=== PATIENT | male | born 1970 | race Caucasian/White ===

== ENCOUNTER 2016-08-30 15:49 | Emergency (ER) | payer BC ==
[~2016-08-30] VITALS: Ht 182.9 cm; Wt 119.7 kg
[~2016-08-30 15:49] MED LIST: PRLSR20 PO; THR25 PO
[2016-08-30 15:53] VITALS: TEMP 36.8; Ht 182.9 cm; Wt 119.7 kg
[2016-08-30] MEDS ORDERED: SODIUM CHLORIDE 0.9% 1000ML 1,000 ML IV STA (17:36)
[2016-08-30] MEDS ORDERED: ONDANSETRON INJ 2 MG/ML 2 ML VIAL IV STA (17:36)
[2016-08-30 17:58] LABS: BASO % 0.1 %; BASO ABS # 0.01 K/uL (0-0.2); COMPLETE YES; EOS % 0.1 %; HEMATOCRIT 47.1 % (42-52); IG% 0.2 %; LYMPH % 6.6 %; MEAN CELL VOLUME 90.2 fL (80-100); MEAN CORPUSCULAR HEMOGLOBIN 31.8 pg (25-34); MEAN CORPUSCULAR HGB CONC 35.2 g/dl (32-36); MEAN PLATELET VOLUME 10.2 fL (7.4-10.4); MONO % 4.8 %; NEUT % 88.2 %; PLATELET COUNT 300 K/uL (130-400); RED BLOOD COUNT 5.22 M/uL (4.7-6.1); WHITE BLOOD COUNT 12.18 K/uL (4.8-10.8)
[2016-08-30] MEDS ORDERED: MoRPHine SULFATE 10 MG/ML CARP/VIAL IV STA (18:03)
[2016-08-30 18:10] LABS: URINE APPEARANCE CLOUDY (CLEAR); URINE BILIRUBIN NEG (NEG); URINE COLOR DK YELLOW; URINE EPITHELIAL CELL AUTO >30 /lpf (0-5); URINE NITRITE NEG (NEG); URINE SPECIFIC GRAVITY 1.022 (1.000-1.030); UROBILINOGEN NEG (NEG); ZZUR CULT IF INDIC CLEAN CATCH NO
[2016-08-30 18:11] LABS: BUN/CREATININE RATIO 11.8 (10-20); CALCIUM 9.2 mg/dl (8.5-10.1); CREATININE 1.1 mg/dl (0.60-1.40); POTASSIUM 4.2 mmol/L (3.5-5.1)
[2016-08-30 18:13] LABS: ALB/GLOB RATIO 1.3 (0.9-2)
[2016-08-30 18:13] LABS: MANUAL MICROSCOPIC REQUIRED? NO; REVIEW REQ? NO
--- NOTE | 2016-08-30 18:46 | DIAGNOSTIC IMAGING REPORT ---
CT SCAN OF THE ABDOMEN AND PELVIS WITHOUT CONTRAST CLINICAL HISTORY: Right flank pain COMPARISON STUDY: 214 TECHNIQUE: CT scan of the abdomen and pelvis was performed from the lung bases to the proximal femurs. Images are reviewed in the axial, sagittal, and coronal planes. IV contrast was not administered for this examination. CT DOSE: 2092.85 mGy.cm FINDINGS: Lower chest: There are mild basilar atelectatic changes. Liver: The unenhanced liver is normal in size, contour, and attenuation. There is no intrahepatic biliary ductal dilatation. Gallbladder: Unremarkable. Spleen: Normal in size and attenuation. Pancreas: Unremarkable. Adrenal glands: Unremarkable. Kidneys: There is mild right-sided hydronephrosis. There is mild right-sided hydroureter. No right renal calculi are visualized. 2 nonobstructing left renal calculi are visualized measuring 2, and 2.5 mm respectively. There is a 1 mm right ureteral calculus at the L 4-5 level. There is an adjacent 22 mm cystic structure versus unopacified bowel loop. Bowel: There are no transition zones indicate bowel obstruction. There is colonic diverticulosis. There are no acute peridiverticular inflammatory changes. The appendix appears normal. Peritoneum: There is no intraperitoneal free air or abdominal ascites. Vasculature: The abdominal aorta is normal in course and caliber. Adenopathy: There are multiple surgical clips within the retroperitoneum, likely secondary to a prior lymph node dissection. No pathologically enlarged lymph nodes are visualized. Pelvic viscera: The bladder, and pelvic viscera are unremarkable. Skeletal structures: No destructive osseous lesions are seen. IMPRESSION: 1. Left-sided nephrolithiasis 2. 1 mm right ureteral calculus at the L4-5 level with secondary mild right-sided hydronephrosis 3. Adjacent to the right ureter at the level of the calculus, there is a 22 mm cystic structure versus unopacified bowel loop 4. Normal appendix 5. Diverticulosis. No evidence of acute peridiverticular inflammatory change 6. No evidence of bowel obstruction. No evidence of free air Electronically signed by: Claudio Chin M.D. 08/30/2016 6:45 PM Dictated Date/Time: 08/30/2016 6:37 PM
[2016-08-30] MEDS ORDERED: KETOROLAC TROMETHAMINE 30 MG/ML VIAL IV STA (18:54)
[2016-08-30] MEDS ORDERED: ONDA4TAB10 SL (19:32)
[2016-08-30] MEDS ORDERED: TAMS0.4C38 PO (19:32)
[2016-08-30] MEDS ORDERED: OXYC-57 PO (19:32)
--- NOTE | 2016-08-30 19:33 | EMERGENCY ROOM VISIT NOTE ---
History First contact with patient: 17:24 Chief Complaint: FLANK PAIN Stated Complaint: PAIN IN SIDE NEAR STOMACH History of Present Illness The patient is a 46 year old male who presents to the Emergency Room with complaints of right-sided flank/abdominal pain which began abruptly approximately 3 hours ago. The patient reports a sudden onset of pain radiating from his right flank into his right lower abdomen. He states that the pain was severe for 1-2 hours, but has since become a dull pain which he now rates a 3/10. He complains of nausea and has had one episode of vomiting. He does report that he has had kidney stones before but is unsure if this feels similar. He denies any urinary symptoms, chest pain, shortness of breath or changes in bowel movements. He denies fevers/chills. He has had a hernia repair but denies any other abdominal surgery. Review of Systems A complete 10-point Review of Systems was discussed with the patient, with pertinent positives and negatives listed in the History of Present Illness. All remaining Review of Systems questions can be considered negative unless otherwise specified. Past Medical/Surgical History Medical Problems: (1) Gastroenteritis (2) History of testicular cancer (3) Vomiting Family History Patient reports no known family medical history. Social History Smoking Status: Never Smoker Alcohol Use: none Drug Use: none Marital Status: Housing Status: lives with family Current/Historical Medications Scheduled Omeprazole (Prilosec), 20 MG PO DAILY Ondasetron Odt (Zofran Odt), 4 MG SL Q6H Tamsulosin Hcl (Flomax), 0.4 MG PO DAILY Scheduled PRN Chlorpromazine Hcl (Thorazine), 50 MG PO TID PRN for hiccups Oxycodone/Acetaminophen 5MG/325MG (Percocet 5MG/325MG), 1-2 TABS PO Q4H PRN for Pain Allergies Coded Allergies: No Known Allergies (Unverified , 08/30/16) Physical Exam Vital Signs Date Time Temp Pulse Resp B/P Pulse Ox O2 Delivery O2 Flow Rate FiO2 08/30/16 19:34 79 16 146/95 98 Room Air 08/30/16 18:31 70 16 148/97 98 08/30/16 17:50 64 18 142/96 100 08/30/16 15:53 36.8 71 18 159/109 100 Room Air Pain Rating (0-10): 6.0 Physical Exam VITALS: Vitals are noted on the nurse's note and reviewed by myself. Vital signs stable. GENERAL: This is a 46-year-old male, in no acute distress, nondiaphoretic, well- developed well-nourished. SKIN: Capillary reflex less than 2 seconds. HEART: Regular rate and rhythm without murmurs gallops or rubs. LUNGS: Clear to auscultation bilaterally without wheezes, rales or rhonchi. ABDOMEN: Positive bowel sounds x 4. Mild tenderness over the right lower abdomen. No guarding or rebound tenderness. MUSCULOSKELETAL: No CVA tenderness. NEURO: Patient was alert and oriented to person place and time. Medical Decision & Procedures ER Provider Diagnostic Interpretation: CT SCAN OF THE ABDOMEN AND PELVIS WITHOUT CONTRAST IMPRESSION: 1. Left-sided nephrolithiasis 2. 1 mm right ureteral calculus at the L4-5 level with secondary mild right-sided hydronephrosis 3. Adjacent to the right ureter at the level of the calculus, there is a 22 mm cystic structure versus unopacified bowel loop 4. Normal appendix 5. Diverticulosis. No evidence of acute peridiverticular inflammatory change 6. No evidence of bowel obstruction. No evidence of free air Laboratory Results 08/30/16 17:45 Red Blood Count 5.22, Mean Corpuscular Volume 90.2, Mean Corpuscular Hemoglobin 31.8, Mean Corpuscular Hemoglobin Concent 35.2, Mean Platelet Volume 10.2, Neutrophils (%) (Auto) 88.2, Lymphocytes (%) (Auto) 6.6, Monocytes (%) (Auto) 4.8, Eosinophils (%) (Auto) 0.1, Basophils (%) (Auto) 0.1, Neutrophils # (Auto) 10.75, Lymphocytes # (Auto) 0.80, Monocytes # (Auto) 0.58, Eosinophils # (Auto) 0.01, Basophils # (Auto) 0.01 08/30/16 17:45 Test 08/30/16 17:30 08/30/16 17:45 Urine Color DK YELLOW Urine Appearance CLOUDY (CLEAR) Urine pH 6.0 (4.5-7.5) Urine Specific [place] 1.022 (1.000-1.030) Urine Protein 1+ (NEG) Urine Glucose (UA) NEG (NEG) Urine Ketones 1+ (NEG) Urine Occult Blood 3+ (NEG) Urine Nitrite NEG (NEG) Urine Bilirubin NEG (NEG) Urine Urobilinogen NEG (NEG) Urine Leukocyte Esterase TRACE (NEG) Urine WBC (Auto) 1-5 /hpf (0-5) Urine RBC (Auto) >30 /hpf (0-4) Urine Hyaline Casts (Auto) 5-10 /lpf (0-5) Urine Epithelial Cells (Auto) >30 /lpf (0-5) Urine Bacteria (Auto) NEG (NEG) White Blood Count 12.18 K/uL (4.8-10.8) Red Blood Count 5.22 M/uL (4.7-6.1) Hemoglobin 16.6 g/dL (14.0-18.0) Hematocrit 47.1 % (42-52) Mean Corpuscular Volume 90.2 fL (80-100) Mean Corpuscular Hemoglobin 31.8 pg (25-34) Mean Corpuscular Hemoglobin Concent 35.2 g/dl (32-36) Platelet Count 300 K/uL (130-400) Mean Platelet Volume 10.2 fL (7.4-10.4) Neutrophils (%) (Auto) 88.2 % Lymphocytes (%) (Auto) 6.6 % Monocytes (%) (Auto) 4.8 % Eosinophils (%) (Auto) 0.1 % Basophils (%) (Auto) 0.1 % Neutrophils # (Auto) 10.75 K/uL (1.4-6.5) Lymphocytes # (Auto) 0.80 K/uL (1.2-3.4) Monocytes # (Auto) 0.58 K/uL (0.11-0.59) Eosinophils # (Auto) 0.01 K/uL (0-0.5) Basophils # (Auto) 0.01 K/uL (0-0.2) RDW Standard Deviation 41.5 fL (36.4-46.3) RDW Coefficient of Variation 12.6 % (11.5-14.5) Immature Granulocyte % (Auto) 0.2 % Immature Granulocyte # (Auto) 0.03 K/uL (0.00-0.02) Anion Gap 7.0 mmol/L (3-11) Est Creatinine Clear Calc Drug Dose 113.3 ml/min Estimated GFR () 93.5 Estimated GFR (Non- 80.6 BUN/Creatinine Ratio 11.8 (10-20) Calcium Level 9.2 mg/dl (8.5-10.1) Total Bilirubin 0.5 mg/dl (0.2-1) Aspartate Amino Transf (AST/SGOT) 19 U/L (15-37) Alanine Aminotransferase (ALT/SGPT) 32 U/L (12-78) Alkaline Phosphatase 31 U/L (45-117) Total Protein 7.4 gm/dl (6.4-8.2) Albumin 4.2 gm/dl (3.4-5.0) Globulin 3.2 gm/dl (2.5-4.0) Albumin/Globulin Ratio 1.3 (0.9-2) Lipase 137 U/L (73-393) Medications Administered Medications (Trade) Dose Ordered Sig/Jarrett Route Start Time Stop Time Status Last Admin Dose Admin Sodium Chloride (Nss 1000ml) 1,000 ml @ 999 mls/hr Q1H1M STAT IV 08/30/16 17:36 08/30/16 18:36 DC 08/30/16 17:48 999 MLS/HR Ondansetron HCl (Zofran Inj) 4 mg NOW STAT IV 08/30/16 17:36 08/30/16 17:37 DC 08/30/16 17:49 4 MG Morphine Sulfate (MoRPHine SULFATE INJ) 6 mg NOW STAT IV 08/30/16 18:03 08/30/16 18:04 DC 08/30/16 18:06 6 MG Ketorolac Tromethamine (Toradol Inj) 30 mg NOW STAT IV 08/30/16 18:54 08/30/16 18:55 DC 08/30/16 19:02 30 MG Medical Decision Differential diagnosis includes renal calculus, pyelonephritis, ruptured AAA, aortic dissection, gastroenteritis, colitis, diverticulitis, appendicitis, among others. The patient was evaluated as above. Labs were drawn and IV access was obtained. Imaging studies were performed and read by radiology as above. The patient was medicated with 1 L normal saline solution, 6 mg morphine, 4 mg Zofran and 30 mg Toradol IV. The patient was reassessed multiple times during their stay in the emergency department and remained in stable condition. The patient is a 46-year-old male who presents today complaining of right-sided abdominal pain. Labs revealed a mild leukocytosis consistent with vomiting. No concerning anemia or electrolyte abnormalities. Liver and kidney functions were within normal limits. Urinalysis was not suggestive of infection, but did show the presence of blood. CT of the abdomen and pelvis did show a right ureteral stone. The patient was informed of this finding. This stone will likely pass on its own. He was given a urine strainer and urology information for follow-up. He was given prescriptions for Zofran, Percocet and Flomax. He will return for worsening symptoms. Based on the patient's presentation, lab results, and imaging studies, I feel the patient is stable for outpatient treatment. Discharge instructions were reviewed with the patient. The patient verbalized understanding of my assessment and treatment plan and was discharged home in good condition. [place] Drug Monitoring Program Search Results: patient reviewed within database, no issues identified Impression Primary Impression: Right ureteral calculus Departure Information Dispostion Home / Self-Care Condition GOOD Prescriptions Ondasetron Odt (ZOFRAN ODT) 4 Mg Tab 4 MG SL Q6H for Nausea, #15 TAB Prov: Nancy Fierro PA-C 08/30/16 Oxycodone/Acetaminophen 5MG/325MG (PERCOCET 5MG/325MG) Tab 1-2 TABS PO Q4H Y for Pain, #24 TAB For Initial Treatment Prov: Nancy Fierro PA-C 08/30/16 Tamsulosin Hcl (FLOMAX) 0.4 Mg Cap 0.4 MG PO DAILY for 7 Days, #7 CAP Prov: Nancy Fierro PA-C 08/30/16 Referrals Augustine Servin Jr,D.O. (PCP) Rik Frey M.D. Patient Instructions My [facility] Additional Instructions You have been treated in the Emergency Department today for a Kidney Stone ( Nephrolithiasis). You have received pain medicine in the emergency department which impairs your ability to operate a vehicle. It is illegal for you to drive after receiving these medicines. You have been prescribed Percocet to be used for pain control. This is a narcotic medication. You cannot drive or consume alcohol while on this medicine. This medicine should only be used for pain that cannot be controlled with [id number] pain medicines. You have been prescribed Zofran to be used for any nausea or vomiting. Take as prescribed. You have been prescribed Flomax 0.4 mg to be taken ONCE daily until you pass the stone. This medicine has been prescribed as it can help relax the smooth muscles of the urinary tract increasing transit time of the kidney stone. For pain control, you can use the following [id number] medicines (if >12 yo): - Regular strength (325mg/tab) Tylenol (acetaminophen) 2 tabs every 4-6 hours as needed. Do not exceed 12 tablets in a 24 hour period. Avoid taking more than 4 grams (4000 mg) of Tylenol per day. This includes any other sources of acetaminophen you may take on a regular basis. - Regular strength (200 mg/tab) Advil (ibuprofen) 1-2 tabs every 4-6 hours as needed. Do not exceed a dose of 3200 mg per day. You have been provided a strainer and specimen collection cup. You should strain your urine to collect any passed stones. Your stones can be placed into the specimen cup and taken to your Urologist for further evaluation. You have been provided the contact information for the on-call Urologist. You should contact the Urologist's office tomorrow to establish a follow-up appointment from today's Emergency Department visit. Return to the Emergency Department if your symptoms persist despite the treatment plan outlined above or if you develop the following symptoms: intractable pain, fever, chills, or large amounts of blood in your urine.
[2016-08-30 19:34] VITALS: BP 146/95; PULSE 79; O2SAT 98
[2016-12-16] MEDS ORDERED: RANI300T PO (21:49)
[2016-12-22] MEDS ORDERED: NRV5 PO (14:47)
== END 2016-08-30 19:42 | disposition home or self-care (01) ==
LOC: C.EDB 15:50 → C.EDC 19:42
DX: N20.1 Calculus of ureter (principal); Z85.47 Personal history of malignant neoplasm of testis; Z79.899 Other long term (current) drug therapy

== ENCOUNTER 2016-12-16 20:55 | Emergency (ER) | payer BC ==
[~2016-12-16] VITALS: Ht 185.4 cm; Wt 114.3 kg
[~2016-12-16 20:55] MED LIST changes: +ONDA4TAB10 SL; +OXYC-57 PO
[2016-12-16 20:57] VITALS: TEMP 37.1; Ht 185.4 cm; Wt 114.3 kg
[2016-12-16] MEDS ORDERED: SODIUM CHLORIDE 0.9% 1000ML 1,000 ML IV STA ×2 (21:26→23:34)
[2016-12-16] MEDS ORDERED: GI COCKTAIL PO STA (21:26)
[2016-12-16] MEDS ORDERED: ONDANSETRON 8 MG/54 ML D5W IV STA (21:26)
[2016-12-16] MEDS ORDERED: ALUMINUM/MAGNESIUM SUSP 30 ML UDC ONE (21:44)
[2016-12-16] MEDS ORDERED: LIDOCAINE HCL 2% VISC SOLN 20 ML UDC ONE (21:44)
[2016-12-16] MEDS ORDERED: OPTIRAY 320 IV PRN (21:45)
[2016-12-16] MEDS ORDERED: RANI300T PO ×2 (21:49)
[2016-12-16] MEDS: HYDROmorphone INJ 1 MG/ML SYR IV PRN ×2 (22:17→23:47)
[2016-12-16 22:25] LABS: BASO % 0.2 %; BASO ABS # 0.02 K/uL (0-0.2); COMPLETE YES; EOS % 0.3 %; HEMATOCRIT 45.8 % (42-52); IG% 0.2 %; LYMPH % 8.8 %; LYMPH ABS # 0.83 K/uL (1.2-3.4); MEAN CELL VOLUME 90.2 fL (80-100); MEAN CORPUSCULAR HEMOGLOBIN 31.5 pg (25-34); MEAN CORPUSCULAR HGB CONC 34.9 g/dl (32-36); MEAN PLATELET VOLUME 10.1 fL (7.4-10.4); MONO % 9.8 %; NEUT % 80.7 %; PLATELET COUNT 297 K/uL (130-400); RED BLOOD COUNT 5.08 M/uL (4.7-6.1); WHITE BLOOD COUNT 9.38 K/uL (4.8-10.8)
[2016-12-16 22:44] LABS: ALT/SGPT 33 U/L (12-78); BLOOD UREA NITROGEN 11 mg/dl (7-18); BUN/CREATININE RATIO 10.8 (10-20); CALCIUM 8.8 mg/dl (8.5-10.1); CARBON DIOXIDE 29 mmol/L (21-32); CHLORIDE 106 mmol/L (98-107); GLUCOSE 96 mg/dl (70-99); POTASSIUM 3.7 mmol/L (3.5-5.1); SODIUM 142 mmol/L (136-145)
[2016-12-16 22:47] LABS: ALKALINE PHOSPHATASE 26 U/L (45-117); AST/SGOT 15 U/L (15-37)
[2016-12-16 23:56] LABS: URINE APPEARANCE CLOUDY (CLEAR); URINE COLOR DK YELLOW; URINE EPITHELIAL CELL AUTO >30 /lpf (0-5); URINE NITRITE NEG (NEG); URINE PH 5.5 (4.5-7.5); URINE SPECIFIC GRAVITY 1.045 (1.000-1.030); UROBILINOGEN NEG (NEG); ZZUR CULT IF INDIC CLEAN CATCH NO
[2016-12-16 23:58] LABS: MANUAL MICROSCOPIC REQUIRED? NO; REVIEW REQ? YES
[2016-12-17] LABS: URINE BILIRUBIN NEG (NEG)
[2016-12-17] MEDS ORDERED: SODIUM CHLORIDE 0.9% 1000ML 1,000 ML IV STA ×2 (00:15→00:18)
[2016-12-17 00:27] LABS: URINE MUCUS PRESENT (NONE PRSENT)
--- NOTE | 2016-12-17 00:36 | EMERGENCY ROOM VISIT NOTE ---
History Report prepared by Augustin: Judith Walker Under the Supervision of: Dr. Jimenez Benitez M.D. First contact with patient: 21:16 Chief Complaint: NAUSEA Stated Complaint: NAUSEA, ACID REFLUX History of Present Illness The patient is a 46 year old male who presents to the Emergency Room with complaints of persistent epigastric abdominal pain starting several days ago. He has a history of acid reflux and thinks it might be causing his symptoms. He has been taking his acid reflux medications as directed, but he is still having the symptoms. He saw his PCP yesterday who gave him a new medication which did not help. He currently rates his discomfort as a 5/10 in severity. The pain improves when he is leaning slightly back as opposed to sitting straight up. He reports nausea, vomiting, and a minimal burning sensation in his chest. He denies any history of abdominal surgeries. He was admitted for 3 days last fall for reflux after having similar symptoms. Pt denies LOC, headache, fevers, chills, diaphoresis, visual changes, neck pain, breathing difficulties, back pain, melena, hematochezia, urinary symptoms, numbness, weakness, lymphadenopathy, rash, or other complaints. Source of History: patient Onset: several days ago Position: abdomen Symptom Intensity: 5/10 Quality: burning Timing: other (persistent) Modifying Factors (Relieving): other (lying down) Associated Symptoms: + chest pain, + nausea, + vomiting Review of Systems See HPI for pertinent positives and negatives. A total of ten systems were reviewed and were otherwise negative. Past Medical & Surgical Medical Problems: (1) Gastroenteritis (2) History of testicular cancer (3) Intractable vomiting with nausea (4) Vomiting Family History Patient reports no known family medical history. Social History Smoking Status: Never Smoker Alcohol Use: none Drug Use: none Marital Status: Housing Status: lives with family Current/Historical Medications Scheduled Omeprazole (Prilosec), 20 MG PO DAILY Ondasetron Odt (Zofran Odt), 4 MG SL Q6H Ranitidine Hcl (Zantac), 300 MG PO DAILY Sucralfate (Carafate), 1 GM PO ACHS Allergies Coded Allergies: No Known Allergies (Unverified , 12/19/16) Physical Exam Vital Signs Date Time Temp Pulse Resp B/P Pulse Ox O2 Delivery O2 Flow Rate FiO2 12/17/16 02:15 57 18 130/81 12/17/16 01:20 58 18 126/78 96 Room Air 12/16/16 23:39 55 17 144/82 95 Room Air 12/16/16 22:34 69 12/16/16 22:33 82 20 153/93 95 Room Air 12/16/16 22:01 56 12/16/16 20:57 37.1 79 18 180/102 96 Room Air Physical Exam GENERAL: Awake, alert, well-appearing, in no distress HENT: Normocephalic, atraumatic. Oropharynx unremarkable. EYES: Normal conjunctiva. Sclera non-icteric. NECK: Supple. No nuchal rigidity. FROM. No JVD. RESPIRATORY: Clear to auscultation. CARDIAC: Regular rate, normal rhythm. Extremities warm and well perfused. Pulses equal. ABDOMEN: Soft, non-distended. Mild epigastric tenderness to palpation. No rebound or guarding. No masses. RECTAL: Deferred. MUSCULOSKELETAL: Chest examination reveals no tenderness. The back is symmetrical on inspection without obvious abnormality. There is no CVA tenderness to palpation. No joint edema. LOWER EXTREMITIES: Calves are equal size bilaterally and non-tender. No edema. No discoloration. NEURO: Normal sensorium. No sensory or motor deficits noted. SKIN: No rash or jaundice noted. Medical Decision & Procedures ER Provider Diagnostic Interpretation: CT scan of the abdomen and pelvis with IV contrast by stat read reveals no evidence of emergent pathology. Laboratory Results 12/16/16 22:10 Red Blood Count 5.08, Mean Corpuscular Volume 90.2, Mean Corpuscular Hemoglobin 31.5, Mean Corpuscular Hemoglobin Concent 34.9, Mean Platelet Volume 10.1, Neutrophils (%) (Auto) 80.7, Lymphocytes (%) (Auto) 8.8, Monocytes (%) (Auto) 9.8, Eosinophils (%) (Auto) 0.3, Basophils (%) (Auto) 0.2, Neutrophils # (Auto) 7.56, Lymphocytes # (Auto) 0.83, Monocytes # (Auto) 0.92, Eosinophils # (Auto) 0.03, Basophils # (Auto) 0.02 12/16/16 22:10 Test 12/16/16 22:10 12/16/16 23:40 White Blood Count 9.38 K/uL (4.8-10.8) Red Blood Count 5.08 M/uL (4.7-6.1) Hemoglobin 16.0 g/dL (14.0-18.0) Hematocrit 45.8 % (42-52) Mean Corpuscular Volume 90.2 fL (80-100) Mean Corpuscular Hemoglobin 31.5 pg (25-34) Mean Corpuscular Hemoglobin Concent 34.9 g/dl (32-36) Platelet Count 297 K/uL (130-400) Mean Platelet Volume 10.1 fL (7.4-10.4) Neutrophils (%) (Auto) 80.7 % Lymphocytes (%) (Auto) 8.8 % Monocytes (%) (Auto) 9.8 % Eosinophils (%) (Auto) 0.3 % Basophils (%) (Auto) 0.2 % Neutrophils # (Auto) 7.56 K/uL (1.4-6.5) Lymphocytes # (Auto) 0.83 K/uL (1.2-3.4) Monocytes # (Auto) 0.92 K/uL (0.11-0.59) Eosinophils # (Auto) 0.03 K/uL (0-0.5) Basophils # (Auto) 0.02 K/uL (0-0.2) RDW Standard Deviation 40.8 fL (36.4-46.3) RDW Coefficient of Variation 12.4 % (11.5-14.5) Immature Granulocyte % (Auto) 0.2 % Immature Granulocyte # (Auto) 0.02 K/uL (0.00-0.02) Anion Gap 7.0 mmol/L (3-11) Est Creatinine Clear Calc Drug Dose 123.6 ml/min Estimated GFR () 104.9 Estimated GFR (Non- 90.5 BUN/Creatinine Ratio 10.8 (10-20) Calcium Level 8.8 mg/dl (8.5-10.1) Total Bilirubin 0.6 mg/dl (0.2-1) Direct Bilirubin 0.1 mg/dl (0-0.2) Aspartate Amino Transf (AST/SGOT) 15 U/L (15-37) Alanine Aminotransferase (ALT/SGPT) 33 U/L (12-78) Alkaline Phosphatase 26 U/L (45-117) Troponin I < 0.015 ng/ml (0-0.045) Total Protein 6.9 gm/dl (6.4-8.2) Albumin 3.8 gm/dl (3.4-5.0) Lipase 125 U/L (73-393) Urine Color DK YELLOW Urine Appearance CLOUDY (CLEAR) Urine pH 5.5 (4.5-7.5) Urine Specific [place] 1.045 (1.000-1.030) Urine Protein TRACE (NEG) Urine Glucose (UA) NEG (NEG) Urine Ketones 2+ (NEG) Urine Occult Blood NEG (NEG) Urine Nitrite NEG (NEG) Urine Bilirubin NEG (NEG) Urine Urobilinogen NEG (NEG) Urine Leukocyte Esterase NEG (NEG) Urine WBC (Auto) 1-5 /hpf (0-5) Urine RBC (Auto) 0-4 /hpf (0-4) Urine Hyaline Casts (Auto) 1-5 /lpf (0-5) Urine Epithelial Cells (Auto) >30 /lpf (0-5) Urine Bacteria (Auto) NEG (NEG) Urine Crystals CALCIUM OXALATE (NONE Urine Pathogenic Casts /lpf (0) Urine Mucus PRESENT (NONE PRSENT) Laboratory results reviewed by me Medications Administered Medications (Trade) Dose Ordered Sig/Jarrett Route Start Time Stop Time Status Last Admin Dose Admin Sodium Chloride (Nss 1000ml) 1,000 ml @ 999 mls/hr Q1H1M STAT IV 12/16/16 21:26 12/16/16 22:26 DC 12/16/16 22:16 999 MLS/HR Ondansetron HCl (Zofran 8mg Iv) 8 mg NOW STAT IV 12/16/16 21:26 12/16/16 21:27 DC 12/16/16 22:16 8 MG Hydromorphone HCl (Dilaudid Inj) 1 mg Q15M PRN IV 12/16/16 21:30 12/17/16 02:55 DC 12/16/16 22:17 1 MG Al Hydroxide/Mg Hydroxide (Maalox Susp) 30 ml STK-MED ONCE .ROUTE 12/16/16 21:44 12/16/16 21:45 DC 12/16/16 22:17 30 ML Lidocaine HCl 20 ml 20 ml STK-MED ONCE .ROUTE 12/16/16 21:44 12/16/16 21:45 DC 12/16/16 22:17 20 ML Sodium Chloride 1,000 ml @ 999 mls/hr Q1H1M STAT IV 12/16/16 23:34 12/17/16 00:34 DC 12/17/16 00:11 999 MLS/HR Sodium Chloride (Nss 1000ml) 1,000 ml @ 999 mls/hr Q1H1M STAT IV 12/17/16 00:18 12/17/16 01:18 DC 12/17/16 00:41 999 MLS/HR ECG Indication: abdominal pain, vomiting Rate (beats per minute): 45 Rhythm: sinus bradycardia Findings: no acute ischemic change, no ectopy ED Course 2124: The patient was evaluated in room B8. A complete history and physical exam was performed. 2125: Zofran 8 mg IV, NSS 1000 ml @ 999 mls/hr IV. 2129: Dilaudid Inj 1 mg IV. 2143: Lidocaine HCl 20 ml PO, Maalox Susp 30 ml PO. 2304: I reevaluated the patient. He is feeling better. He is going to CT. Medical Decision Triage Nursing notes reviewed. The patient's presentation and history were concerning for abdominal pain and vomiting. Etiologies such as reflux, esophagitis, dehydration, appendicitis, diverticulitis, obstruction, inflammatory bowel disease, renal colic, PUD, biliary pathology, pancreatitis, mesenteric ischemia, aortic pathology, infections, genitourinary, UTI, perforated viscus, as well as others were entertained. The patient was evaluated. He was treated with normal saline hydration, IV Zofran, and IV Dilaudid. He was also given a GI cocktail. On reassessment he was feeling much better. His CBC, chemistry panel, LFTs, lipase, troponin and urinalysis were unremarkable except for mild concentration of his urine. CT imaging was performed and revealed no evidence of emergent pathology. The patient brought up the possibility of being admitted to the hospital. Currently his diagnostic testing is unremarkable and he is tolerating oral intake. He will be hydrated thoroughly and I discussed giving him a total of 3 L in the emergency department. At this point he does not meet criteria for admission and I had a long discussion about this. If the patient is hydrated and continues his current medications, PPI, H2 adriano, and Zofran hopefully he will stay hydrated and can follow up with his primary physician tomorrow. Patient felt very comfortable with this plan. I gave my usual and customary discussion regarding this issue. The patient was hypertensive. The patient was counseled on the blood pressure and need for follow-up. I gave my usual and customary discussion regarding this issue. By the evaluation outlined above other emergent etiologies such as those listed in the differential, as well as others, were deemed relatively unlikely. The patient and significant other were informed about the findings as listed above. All questions were answered and they were pleased with the treatment. Return instructions were outlined and the patient was discharged in stable condition. The patient was referred to his PCP for follow-up tomorrow for a recheck of the current condition. The chart was completed utilizing [employer] Speech voice recognition software. Grammatical errors, random word insertions, pronoun errors, and incomplete sentences are an occasional consequence of this system due to software limitations, ambient noise, and hardware issues. Any formal questions or concerns about the content, text, or information contained within the body of this dictation should be directly addressed to the physician for clarification. Impression Primary Impression: Vomiting Additional Impression: Epigastric abdominal pain Scribe Attestation The scribe's documentation has been prepared under my direction and personally reviewed by me in its entirety. I confirm that the note above accurately reflects all work, treatment, procedures, and medical decision making performed by me. Departure Information Dispostion Home / Self-Care Referrals No Doctor, Assigned (PCP) Patient Instructions [facility] Additional Instructions VOMITING INSTRUCTIONS: DO NOT drive, drink alcohol, operate machinery, or perform dangerous activities today. You were given medications in the ER that can affect your ability to safely function or operate a vehicle. Try Maalox 30 mL before bedtime to help with reflux. Zofran(odansetron) tablets 4mg: Take one and allow it to dissolve in your mouth every four to six hours as needed for nausea or vomiting. Acetaminophen(Tylenol) may be used for fever or pain. Use 1000mg every six hours as needed. Avoid using more than 4000mg in a 24 hour period. Rest and drink plenty of fluids as tolerated. Slow sips of water or sports drinks are recommended instead of large amounts all at once. Continue current medications. Once your stomach is settled start with a clear liquid diet (jello, soup broth, etc.) and then advance as tolerated. You should avoid full, heavy meals for about 24 hrs from the time your symptoms resolved. Return to the ER for persistent vomiting, fevers, abdominal pain, chest pains, difficulty breathing, black or bloody stools, worsening of your condition, or as needed. Follow up with your primary physician tomorrow for a recheck of your current condition. Your blood pressure also needs to be rechecked. Problem Qualifiers
[2016-12-17 01:20] VITALS: O2SAT 96
[2016-12-17 02:15] VITALS: BP 130/81; PULSE 57
--- NOTE | 2016-12-17 07:57 | DIAGNOSTIC IMAGING REPORT ---
ABDOMEN AND PELVIS CT WITH IV CONTRAST CT DOSE: 1104.95 mGy.cm HISTORY: central abd pain, vomiting TECHNIQUE: Multiaxial CT images of the abdomen and pelvis were performed following the use of intravenous contrast. COMPARISON STUDY: Abdomen and pelvis CT 08/30/2016. FINDINGS: The lung bases are clear. No suspicious lytic or blastic osseous lesions. There are surgical clips within the retroperitoneum. No abdominal or pelvic lymphadenopathy. The liver, gallbladder, pancreas, spleen, and adrenal glands are unremarkable. The kidneys enhance normally. No hydronephrosis. The bladder is unremarkable. There are suggestion of a prior right-sided orchiectomy. No bowel wall thickening or obstruction. Colonic diverticulosis. Normal appendix. IMPRESSION: Postoperative changes as described above. No bowel wall thickening or obstruction. Normal appendix. Electronically signed by: Jan Henning M.D. 12/17/2016 7:55 AM Dictated Date/Time: 12/17/2016 7:50 AM
[2016-12-18] MEDS ORDERED: SUCR1TAB29 PO ×2 (15:09)
[2016-12-22] MEDS ORDERED: NRV5 PO ×2 (14:47)
== END 2016-12-17 02:17 | disposition home or self-care (01) ==
LOC: C.EDB 20:56
DX: R11.10 Vomiting, unspecified (principal); R10.13 Epigastric pain

== ENCOUNTER 2016-12-18 12:40 | Emergency (ER) | payer BC ==
[~2016-12-18] VITALS: Ht 185.4 cm; Wt 114.0 kg
[~2016-12-18 12:40] MED LIST changes: -OXYC-57 PO; +RANI300T PO
[2016-12-18 12:43] VITALS: TEMP 36.7; Ht 185.4 cm; Wt 114.0 kg
[2016-12-18] MEDS ORDERED: SODIUM CHLORIDE 0.9% 1000ML 1,000 ML IV STA ×2 (13:06→13:59)
[2016-12-18] MEDS ORDERED: ONDANSETRON INJ 2 MG/ML 2 ML VIAL IV STA (13:06)
[2016-12-18] MEDS ORDERED: HYDROmorphone INJ 1 MG/ML SYR IV STA (13:06)
--- NOTE | 2016-12-18 13:10 | EMERGENCY ROOM VISIT NOTE ---
History Report prepared by Augustin: Eagle Gaines Under the Supervision of: Dr. Willem Jimenez M.D. First contact with patient: 12:58 Chief Complaint: GI ASSESSMENT Stated Complaint: NAUSEA, ACID History of Present Illness The patient is a 46 year old male who presents to the Emergency Room with complaints of waxing & waning epigastric pain for the past week. The patient describes a burning sensation. He also complains of nausea & vomiting. He denies urinary symptoms. The patient was in the ED earlier this week for the same symptoms. He seemed to be better yesterday but worsened again today. He has had similar symptoms in the past which was attributed to acid reflux. He is on Zantac and Prilosec. The patient denies recent antibiotic, NSAID, or steroid use. The patient recently had a kidney stone for which he took a prescription from his primary doctor. The patient notes that his abdominal pain started around the time that he had a kidney stone. He cannot recall what prescriptions he had. He denies recent falls or trauma. He is not diabetic. Source of History: patient Onset: one week ago Position: abdomen (epigastric) Quality: burning Timing: waxes/wanes Associated Symptoms: + nausea, + vomiting, No urinary symptoms Review of Systems See HPI for pertinent positives & negatives. A total of 10 systems reviewed and were otherwise negative. Past Medical & Surgical Medical Problems: (1) Gastroenteritis (2) History of testicular cancer (3) Vomiting Family History Patient reports no known family medical history. Social History Smoking Status: Never Smoker Alcohol Use: none Drug Use: none Marital Status: Housing Status: lives with family Current/Historical Medications Scheduled Omeprazole (Prilosec), 20 MG PO DAILY Ondasetron Odt (Zofran Odt), 4 MG SL Q6H Ranitidine Hcl (Zantac), 300 MG PO DAILY Sucralfate (Carafate), 1 GM PO ACHS Allergies Coded Allergies: No Known Allergies (Unverified , 12/18/16) Physical Exam Vital Signs Date Time Temp Pulse Resp B/P Pulse Ox O2 Delivery O2 Flow Rate FiO2 12/18/16 15:42 61 18 149/81 98 12/18/16 15:00 51 16 142/88 98 Room Air 12/18/16 14:00 52 16 118/75 95 Room Air 12/18/16 12:43 36.7 68 18 188/96 97 Room Air Physical Exam GENERAL: Patient is uncomfortable appearing and in moderate distress. HEENT: No acute trauma, normocephalic atraumatic, mucous membranes moist, no nasal congestion, no scleral icterus. NECK: No stridor, no adenopathy, no meningismus, trachea is midline. LUNGS: No dyspnea. Clear to auscultation and equal bilaterally. No wheeze, no rhonchi. HEART: Regular rate and rhythm. No murmurs, rubs, gallops appreciated. ABDOMEN: Soft, nontender, bowel sounds positive, no masses appreciated, no peritonitis. BACK: No midline tenderness, no CVA tenderness EXTREMITIES: Normal motion all extremities, no cyanosis, no edema. NEUROLOGIC: Alert and oriented, no acute motor or sensory deficits, no focal weakness, cranial nerves grossly intact. SKIN: No rash, no jaundice, no diaphoresis. Medical Decision & Procedures Laboratory Results 12/18/16 13:00 Red Blood Count 5.07, Mean Corpuscular Volume 90.5, Mean Corpuscular Hemoglobin 31.8, Mean Corpuscular Hemoglobin Concent 35.1, Mean Platelet Volume 10.0, Neutrophils (%) (Auto) 82.2, Lymphocytes (%) (Auto) 10.1, Monocytes (%) (Auto) 7.2, Eosinophils (%) (Auto) 0.1, Basophils (%) (Auto) 0.3, Neutrophils # (Auto) 5.80, Lymphocytes # (Auto) 0.71, Monocytes # (Auto) 0.51, Eosinophils # (Auto) 0.01, Basophils # (Auto) 0.02 12/18/16 13:00 Test 12/18/16 13:00 12/18/16 13:22 White Blood Count 7.06 K/uL (4.8-10.8) Red Blood Count 5.07 M/uL (4.7-6.1) Hemoglobin 16.1 g/dL (14.0-18.0) Hematocrit 45.9 % (42-52) Mean Corpuscular Volume 90.5 fL (80-100) Mean Corpuscular Hemoglobin 31.8 pg (25-34) Mean Corpuscular Hemoglobin Concent 35.1 g/dl (32-36) Platelet Count 288 K/uL (130-400) Mean Platelet Volume 10.0 fL (7.4-10.4) Neutrophils (%) (Auto) 82.2 % Lymphocytes (%) (Auto) 10.1 % Monocytes (%) (Auto) 7.2 % Eosinophils (%) (Auto) 0.1 % Basophils (%) (Auto) 0.3 % Neutrophils # (Auto) 5.80 K/uL (1.4-6.5) Lymphocytes # (Auto) 0.71 K/uL (1.2-3.4) Monocytes # (Auto) 0.51 K/uL (0.11-0.59) Eosinophils # (Auto) 0.01 K/uL (0-0.5) Basophils # (Auto) 0.02 K/uL (0-0.2) RDW Standard Deviation 40.9 fL (36.4-46.3) RDW Coefficient of Variation 12.5 % (11.5-14.5) Immature Granulocyte % (Auto) 0.1 % Immature Granulocyte # (Auto) 0.01 K/uL (0.00-0.02) Anion Gap 7.0 mmol/L (3-11) Est Creatinine Clear Calc Drug Dose 123.4 ml/min Estimated GFR () 104.9 Estimated GFR (Non- 90.5 BUN/Creatinine Ratio 9.4 (10-20) Calcium Level 9.0 mg/dl (8.5-10.1) Phosphorus Level 2.8 mg/dl (2.5-4.9) Magnesium Level 2.5 mg/dl (1.8-2.4) Total Bilirubin 0.7 mg/dl (0.2-1) Direct Bilirubin 0.2 mg/dl (0-0.2) Aspartate Amino Transf (AST/SGOT) 18 U/L (15-37) Alanine Aminotransferase (ALT/SGPT) 35 U/L (12-78) Alkaline Phosphatase 28 U/L (45-117) Troponin I < 0.015 ng/ml (0-0.045) Total Protein 6.9 gm/dl (6.4-8.2) Albumin 4.0 gm/dl (3.4-5.0) Lipase 121 U/L (73-393) Urine Color DK YELLOW Urine Appearance CLEAR (CLEAR) Urine pH 7.0 (4.5-7.5) Urine Specific [place] 1.025 (1.000-1.030) Urine Protein NEG (NEG) Urine Glucose (UA) NEG (NEG) Urine Ketones 3+ (NEG) Urine Occult Blood NEG (NEG) Urine Nitrite NEG (NEG) Urine Bilirubin NEG (NEG) Urine Urobilinogen POS (NEG) Urine Leukocyte Esterase NEG (NEG) Urine WBC (Auto) 1-5 /hpf (0-5) Urine RBC (Auto) 0-4 /hpf (0-4) Urine Hyaline Casts (Auto) 1-5 /lpf (0-5) Urine Epithelial Cells (Auto) >30 /lpf (0-5) Urine Bacteria (Auto) NEG (NEG) Laboratory results as reviewed by me. Medications Administered Medications (Trade) Dose Ordered Sig/Jarrett Route Start Time Stop Time Status Last Admin Dose Admin Sodium Chloride (Nss 1000ml) 1,000 ml @ 999 mls/hr Q1H1M STAT IV 12/18/16 13:06 12/18/16 14:06 DC 12/18/16 13:21 999 MLS/HR Ondansetron HCl (Zofran Inj) 4 mg NOW STAT IV 12/18/16 13:06 12/18/16 13:08 DC 12/18/16 13:21 4 MG Hydromorphone HCl 1 mg 1 mg NOW STAT IV 12/18/16 13:06 12/18/16 13:08 DC 12/18/16 13:21 1 MG Sodium Chloride (Nss 1000ml) 1,000 ml @ 999 mls/hr Q1H1M STAT IV 12/18/16 13:59 12/18/16 14:59 DC 12/18/16 14:44 999 MLS/HR Al Hydroxide/Mg Hydroxide (Maalox Susp) 30 ml STK-MED ONCE .ROUTE 12/18/16 15:19 12/18/16 15:20 DC 12/18/16 15:36 30 ML Lidocaine HCl (Viscous Lidocaine 2% Soln) 20 ml STK-MED ONCE .ROUTE 12/18/16 15:19 12/18/16 15:20 DC 12/18/16 15:36 20 ML ED Course 1300: The patient was evaluated in room B4b. A complete history and physical exam was performed. 1306: Dilaudid 1 mg Iv, Zofran 4 mg IV, NSS 1000 ml @ 999 mls/hr. 1359: NSS 1000 ml @ 999 mls/hr. 1410: The patient is feeling much better. Discussed the possibility of hospitalization with him versus treatment at home. The patient has elected to be discharged. 1500: Reassessed the patient. Discussed the findings with him. He verbalized understanding and agreement. The patient is ready for discharge. Medical Decision Differential: Cholecystitis, Gallbladder disfunction, Hepatic Disfunction, Gastritis/PUD, Pancreatitis, ACS, Aortic Pathology, amongst other pathologies entertained. 46 yr old male arrives for recurrence of epigastric discomfort that brought him in 2 days earlier. This previously has happened without acute findings nor etiology though presumed gastritic in nature. Notes left kidney stone a week earlier and took "non-narcotic" pain med that he is uncertain of what it is, though I suspect NSAID? Already with labs, ct which were unremarkable 2 days ago. Exam benign without peritonitis. No fevers and repeat labs unremarkable. Feeling improved. Given further fluids for dehydration. With stable labs, vitals and benign exam I feel it is reasonable to continue outpatient therapy for presumed gastric cause, though given this is second visit I did give him option of observation in hospital which he declines. No indication for repeat imaging at this time. Stressed PCP follow up and discussion of GI evaluation. Aware of symptoms requiring RTED. Stable and feeling better at discharge. Impression Primary Impression: Epigastric abdominal pain Additional Impression: Dehydration Scribe Attestation The scribe's documentation has been prepared under my direction and personally reviewed by me in its entirety. I confirm that the note above accurately reflects all work, treatment, procedures, and medical decision making performed by me. Departure Information Dispostion Home / Self-Care Prescriptions Sucralfate (CARAFATE) 1 Gm Tab 1 GM PO ACHS for 30 Days, #120 TAB Prov: Willem Jimenez M.D. 12/18/16 Referrals No Doctor, Assigned (PCP) Patient Instructions ED Epigastric Pain [facility] Additional Instructions It is important you avoid any NSAID medications as this may worsening gastritis problems. Please follow up with your primary care provider early this week to discuss whether you should be seen by GI specialist for endoscopy (camera in to stomach). Return immediately if worsening pain, passing out, fevers, blood in stool/ vomiting or other concerning symptoms. We are here to help. Problem Qualifiers
[2016-12-18 13:17] LABS: BASO % 0.3 %; BASO ABS # 0.02 K/uL (0-0.2); COMPLETE YES; EOS % 0.1 %; HEMATOCRIT 45.9 % (42-52); IG% 0.1 %; LYMPH % 10.1 %; LYMPH ABS # 0.71 K/uL (1.2-3.4); MEAN CELL VOLUME 90.5 fL (80-100); MEAN CORPUSCULAR HEMOGLOBIN 31.8 pg (25-34); MEAN CORPUSCULAR HGB CONC 35.1 g/dl (32-36); MONO % 7.2 %; NEUT % 82.2 %; PLATELET COUNT 288 K/uL (130-400); RED BLOOD COUNT 5.07 M/uL (4.7-6.1); WHITE BLOOD COUNT 7.06 K/uL (4.8-10.8)
[2016-12-18 13:30] LABS: ALT/SGPT 35 U/L (12-78); AST/SGOT 18 U/L (15-37); BLOOD UREA NITROGEN 9 mg/dl (7-18); BUN/CREATININE RATIO 9.4 (10-20); CARBON DIOXIDE 31 mmol/L (21-32); CHLORIDE 104 mmol/L (98-107); GLUCOSE 98 mg/dl (70-99); MAGNESIUM 2.5 mg/dl (1.8-2.4); SODIUM 142 mmol/L (136-145)
[2016-12-18 13:34] LABS: ALKALINE PHOSPHATASE 28 U/L (45-117); PHOSPHORUS 2.8 mg/dl (2.5-4.9)
[2016-12-18 13:35] LABS: URINE APPEARANCE CLEAR (CLEAR); URINE BILIRUBIN NEG (NEG); URINE COLOR DK YELLOW; URINE EPITHELIAL CELL AUTO >30 /lpf (0-5); URINE NITRITE NEG (NEG); URINE SPECIFIC GRAVITY 1.025 (1.000-1.030); UROBILINOGEN POS (NEG); ZZUR CULT IF INDIC CLEAN CATCH NO
[2016-12-18 13:40] LABS: MANUAL MICROSCOPIC REQUIRED? NO; REVIEW REQ? NO
[2016-12-18] MEDS ORDERED: SUCR1TAB29 PO (15:09)
[2016-12-18] MEDS ORDERED: GI COCKTAIL PO STA (15:11)
[2016-12-18] MEDS ORDERED: ALUMINUM/MAGNESIUM SUSP 30 ML UDC ONE (15:19)
[2016-12-18] MEDS ORDERED: LIDOCAINE HCL 2% VISC SOLN 20 ML UDC ONE (15:19)
[2016-12-18 15:42] VITALS: BP 149/81; PULSE 61; O2SAT 98
[2016-12-22] MEDS ORDERED: NRV5 PO (14:47)
== END 2016-12-18 15:43 | disposition home or self-care (01) ==
LOC: C.EDB 12:41
DX: R10.13 Epigastric pain (principal); E86.0 Dehydration; Z87.19 Personal history of other diseases of the digestive system; Z85.47 Personal history of malignant neoplasm of testis; Z79.899 Other long term (current) drug therapy

== ENCOUNTER 2016-12-19 14:32 | Inpatient (IN) | payer BC ==
[~2016-12-19] VITALS: Ht 185.4 cm; Wt 114.2 kg
[~2016-12-19 14:32] MED LIST changes: +OXYC-57 PO; +SUCR1TAB29 PO
[2016-12-19] MEDS ORDERED: HYDROmorphone INJ 1 MG/ML SYR IV STA (14:58)
[2016-12-19] MEDS ORDERED: SODIUM CHLORIDE 0.9% 1000ML 1,000 ML IV STA (14:58)
[2016-12-19] MEDS ORDERED: ONDANSETRON INJ 2 MG/ML 2 ML VIAL IV STA ×2 (14:58→16:18)
[2016-12-19] MEDS ORDERED: SODIUM CHLORIDE 0.9% 1000ML 1,000 ML IV ONE (14:58)
--- NOTE | 2016-12-19 15:00 | EMERGENCY ROOM VISIT NOTE ---
History Report prepared by Augustin: Frederick Dao Under the Supervision of: Dr. Danyel Ortiz M.D. First contact with patient: 14:46 Chief Complaint: NAUSEA Stated Complaint: NAUSEA,ACID History of Present Illness The patient is a 46 year old male who presents to the Emergency Room with complaints of reoccurring nausea that happened last night. He has been to the ER two separate times in the past couple of days for the same symptoms. He had been treated in the recent past for a kidney stone. He was placed on Flomax and a pain medication. He believes that his symptoms began after he started these new medications. Last night, he began experiencing a burning abdominal pain with nausea that lasted into the night. He could not rest without feeling the sensation. He states that he has a lot of acid build up from his stomach. He rates his pain a 5/10 in severity. He then began to vomit. He denies any diarrhea, fever, chest pain, or shortness of breath. He is not having any trouble moving his bowels. Source of History: patient Onset: last night Position: other (GI) Symptom Intensity: moderate Quality: other (Nausea) Timing: constant Associated Symptoms: + abdominal pain, + vomiting, No SOB, No chest pain, No diarrhea, No fevers Review of Systems See HPI for pertinent positives & negatives. A total of 10 systems reviewed and were otherwise negative. Past Medical & Surgical Medical Problems: (1) Gastroenteritis (2) History of testicular cancer (3) Vomiting Old medical records were reviewed. Nurse's notes were reviewed and I agree with. Family History Patient reports no known family medical history. Social History Smoking Status: Never Smoker Alcohol Use: none Drug Use: none Marital Status: Housing Status: lives with family Current/Historical Medications Scheduled Omeprazole (Prilosec), 20 MG PO DAILY Ondasetron Odt (Zofran Odt), 4 MG SL Q6H Ranitidine Hcl (Zantac), 300 MG PO DAILY Sucralfate (Carafate), 1 GM PO ACHS Allergies Coded Allergies: No Known Allergies (Unverified , 12/19/16) Physical Exam Vital Signs Date Time Temp Pulse Resp B/P Pulse Ox O2 Delivery O2 Flow Rate FiO2 12/19/16 16:10 62 16 131/91 96 Room Air 12/19/16 15:28 55 12/19/16 14:35 36.8 56 20 183/106 99 Room Air Physical Exam General: Non ill appearing middle aged male. Well developed well nourished in no acute distress, breathing comfortably on room air. Normal speech HEENT: Normal cephalic atraumatic. Pupils are equal round and reactive to light. Extraocular movements are intact. Oropharynx is pink with moist mucous membranes. No swelling of the mouth lips or tongue. Neck: Supple with a midline trachea. No meningeal signs or stiffness, no JVD or bruits. No Stridor. Chest: Clear to auscultation bilaterally. No wheezes or rhonchi. No increased work of breathing. Heart: regular rate and rhythm. Abdomen: Soft minimally tender to the epigastrium, no RUQ tenderness, nondistended without rebound guarding or rigidity. Extremities: No cyanosis clubbing or edema. No calf tenderness or assymetry Spine/Back. Non tender to palpation. No CVA tenderness Skin: Good turgor without rashes. Neurologic exam: Cranial nerves two through 12 are intact. Motor and sensation are intact and symmetrical throughout. Medical Decision & Procedures ER Provider Diagnostic Interpretation: Radiology results as stated below per my review and radiologist interpretation: CHEST ONE VIEW PORTABLE HISTORY: Atypical CHEST PAIN COMPARISON: Chest 08/30/2016. FINDINGS: Low lung volumes. The cardiac silhouette remains mildly enlarged. No pleural effusions. No pneumothorax. No evidence for pulmonary edema. No focal lung consolidations. IMPRESSION: Stable mild cardiomegaly. Electronically signed by: Jan Henning M.D. 12/19/2016 3:18 PM Dictated Date/Time: 12/19/2016 3:17 PM ABDOMINAL ULTRASOUND, RIGHT UPPER QUADRANT HISTORY: Right upper quadrant abdominal pain.. COMPARISON: Abdomen and pelvis CT 12/16/2016. FINDINGS: Pancreas: Obscured by overlying bowel gas. Liver: Unremarkable. Gallbladder: No gallbladder wall thickening. No gallstones. CBD: 5 mm. Right kidney: No hydronephrosis. IMPRESSION: 1. Normal gallbladder. No gallstones. 2. The pancreas was obscured by overlying bowel gas. Electronically signed by: Jan Henning M.D. 12/19/2016 5:09 PM Dictated Date/Time: 12/19/2016 5:08 PM Laboratory Results 12/19/16 15:30 Red Blood Count 5.13, Mean Corpuscular Volume 90.6, Mean Corpuscular Hemoglobin 32.0, Mean Corpuscular Hemoglobin Concent 35.3, Mean Platelet Volume 10.5, Neutrophils (%) (Auto) 79.0, Lymphocytes (%) (Auto) 10.3, Monocytes (%) (Auto) 9.9, Eosinophils (%) (Auto) 0.5, Basophils (%) (Auto) 0.1, Neutrophils # (Auto) 6.59, Lymphocytes # (Auto) 0.86, Monocytes # (Auto) 0.83, Eosinophils # (Auto) 0.04, Basophils # (Auto) 0.01 12/19/16 15:30 Test 12/19/16 15:30 12/19/16 15:33 White Blood Count 8.35 K/uL (4.8-10.8) Red Blood Count 5.13 M/uL (4.7-6.1) Hemoglobin 16.4 g/dL (14.0-18.0) Hematocrit 46.5 % (42-52) Mean Corpuscular Volume 90.6 fL (80-100) Mean Corpuscular Hemoglobin 32.0 pg (25-34) Mean Corpuscular Hemoglobin Concent 35.3 g/dl (32-36) Platelet Count 279 K/uL (130-400) Mean Platelet Volume 10.5 fL (7.4-10.4) Neutrophils (%) (Auto) 79.0 % Lymphocytes (%) (Auto) 10.3 % Monocytes (%) (Auto) 9.9 % Eosinophils (%) (Auto) 0.5 % Basophils (%) (Auto) 0.1 % Neutrophils # (Auto) 6.59 K/uL (1.4-6.5) Lymphocytes # (Auto) 0.86 K/uL (1.2-3.4) Monocytes # (Auto) 0.83 K/uL (0.11-0.59) Eosinophils # (Auto) 0.04 K/uL (0-0.5) Basophils # (Auto) 0.01 K/uL (0-0.2) RDW Standard Deviation 41.7 fL (36.4-46.3) RDW Coefficient of Variation 12.4 % (11.5-14.5) Immature Granulocyte % (Auto) 0.2 % Immature Granulocyte # (Auto) 0.02 K/uL (0.00-0.02) Anion Gap 6.0 mmol/L (3-11) Est Creatinine Clear Calc Drug Dose 128.7 ml/min Estimated GFR () 110.2 Estimated GFR (Non- 95.1 BUN/Creatinine Ratio 6.8 (10-20) Calcium Level 8.9 mg/dl (8.5-10.1) Total Bilirubin 0.7 mg/dl (0.2-1) Direct Bilirubin 0.1 mg/dl (0-0.2) Aspartate Amino Transf (AST/SGOT) 19 U/L (15-37) Alanine Aminotransferase (ALT/SGPT) 40 U/L (12-78) Alkaline Phosphatase 28 U/L (45-117) Total Protein 7.3 gm/dl (6.4-8.2) Albumin 4.1 gm/dl (3.4-5.0) Lipase 123 U/L (73-393) Bedside Troponin I 0.000 ng/ml (0-0.045) Laboratory studies as stated above per my review. Medications Administered Medications (Trade) Dose Ordered Sig/Jarrett Route Start Time Stop Time Status Last Admin Dose Admin Sodium Chloride 1,000 ml @ 999 mls/hr Q1H1M STAT IV 12/19/16 14:58 12/19/16 15:58 DC 12/19/16 15:26 999 MLS/HR Sodium Chloride (Nss 1000ml) 1,000 ml @ 150 mls/hr Q6H40M ONCE IV 12/19/16 14:58 12/19/16 21:37 12/19/16 14:58 150 MLS/HR Ondansetron HCl (Zofran Inj) 4 mg NOW STAT IV 12/19/16 14:58 12/19/16 15:02 DC 12/19/16 15:25 4 MG Hydromorphone HCl (Dilaudid Inj) 1 mg NOW STAT IV 12/19/16 14:58 12/19/16 15:02 DC 12/19/16 15:25 1 MG Al Hydroxide/Mg Hydroxide (Maalox Susp) 30 ml NOW STAT PO 12/19/16 15:02 12/19/16 15:03 DC 12/19/16 15:24 30 ML Lidocaine HCl (Viscous Lidocaine 2% Soln) 10 ml NOW STAT MT 12/19/16 15:02 12/19/16 15:03 DC 12/19/16 15:24 10 ML ECG Indication: nausea Rate (beats per minute): 45 Rhythm: sinus bradycardia Findings: no acute ischemic change, no ectopy Comparison ECG Date: 04 Jun 2016 Change: Sinus rony is now present. ED Course 1446: Past medical records reviewed. The patient was evaluated in room C9, and a complete history and physical examination were performed. 1458: Ordered Dilaudid Inj 1 mg IV, Zofran Inj 4 mg IV, Sodium Chloride 1000 ml @ 150 mls/hr IV, Sodium Chloride 1000 ml @ 999 mls/hr IV 1502: Ordered Lidocaine HCl 10 mg MT, Maalox Susp 30 ml PO 1610: The patient's nausea and pain are almost gone, but he feels like he cannot go home. 1618: Ordered Zofran Inj 4 mg IV 1628: Upon reevaluation, the patient is resting. I discussed the results and treatment plan with the patient. He verbalized agreement of the treatment plan. The patient will be [facility] for further [facility]. Medical Decision Differentials include gastritis, peptic ulcer disease, arrhythmia, cardiac disease, dehydration, pancreatitis, and gallbladder disease. Medication Reconciliation: I attest that I have personally reviewed the patient' s current medication list. Blood pressure Screening: Patient was found to have normal blood pressure on screening and does not require follow-up. This patient comes in as described above. He was placed in room C9. Here for treatment and evaluation of epigastric abdominal pain and nausea. He was seen here 2 times recently for this as well so this is third visit with similar complaints. The working diagnosis is at this point has been gastritis related to his medications that he took for pain for kidney stone. He has symptoms which sound like gastritis or peptic ulcer disease. IV access established was given GI cocktail. He was Hydrated with IV normal saline. He was Given Dilaudid 1 mg IV and Zofran 4 mg IV. I did ultrasound of his gallbladder and I reviewed his old records he recent CAT scan which was unremarkable. EKG was obtained and a full cardiac workup was also obtained. EKG does not suggest acute coronary syndrome or arrhythmia. He is mildly bradycardic which may be from vagal tone. Troponin is not elevated. Her legs likely cardiac. Chest x- ray is unremarkable. Ultrasound his gallbladder is unremarkable. He has no acute electrolyte or metabolic abnormalities. There is no abnormalities to suggest liver or gallbladder or pancreas disease. I think this is gastritis or peptic ulcer disease. The patient does not feel he can go home he was given an additional Zofran 4 mg IV. He seems to be doing better but he says that the last 2 times that he was here he went home and felt okay but then started vomiting again. I did discuss case Dr. Hernandez who will see the patient in the ER for likely observation/admit or admission Consults Time Called: 1624 Consulting Physician: Dr. Whittaker - [facility] [place] Returned Call: [phone] She will be evaluating the patient for further management and care. Impression Primary Impression: Gastritis Additional Impression: Dehydration Scribe Attestation The scribe's documentation has been prepared under my direction and personally reviewed by me in its entirety. I confirm that the note above accurately reflects all work, treatment, procedures, and medical decision making performed by me. Departure Information Dispostion Being Evaluated By Hospitalist Referrals Augustine Servin Jr,D.O. (PCP) Patient Instructions My [facility] Problem Qualifiers
[2016-12-19] MEDS ORDERED: ALUMINUM/MAGNESIUM SUSP 30 ML UDC PO STA (15:02)
[2016-12-19] MEDS ORDERED: LIDOCAINE HCL 2% VISC SOLN 20 ML UDC MT STA (15:02)
--- NOTE | 2016-12-19 15:19 | DIAGNOSTIC IMAGING REPORT ---
CHEST ONE VIEW PORTABLE HISTORY: Atypical CHEST PAIN COMPARISON: Chest 08/30/2016. FINDINGS: Low lung volumes. The cardiac silhouette remains mildly enlarged. No pleural effusions. No pneumothorax. No evidence for pulmonary edema. No focal lung consolidations. IMPRESSION: Stable mild cardiomegaly. Electronically signed by: Jan Henning M.D. 12/19/2016 3:18 PM Dictated Date/Time: 12/19/2016 3:17 PM
[2016-12-19 15:39] LABS: BASO % 0.1 %; BASO ABS # 0.01 K/uL (0-0.2); COMPLETE YES; EOS % 0.5 %; HEMATOCRIT 46.5 % (42-52); IG% 0.2 %; LYMPH % 10.3 %; LYMPH ABS # 0.86 K/uL (1.2-3.4); MEAN CELL VOLUME 90.6 fL (80-100); MEAN CORPUSCULAR HGB CONC 35.3 g/dl (32-36); MEAN PLATELET VOLUME 10.5 fL (7.4-10.4); MONO % 9.9 %; PLATELET COUNT 279 K/uL (130-400); RED BLOOD COUNT 5.13 M/uL (4.7-6.1); WHITE BLOOD COUNT 8.35 K/uL (4.8-10.8)
[2016-12-19 16:02] LABS: BUN/CREATININE RATIO 6.8 (10-20); CALCIUM 8.9 mg/dl (8.5-10.1); CREATININE 0.96 mg/dl (0.60-1.40); POTASSIUM 3.9 mmol/L (3.5-5.1)
--- NOTE | 2016-12-19 17:07 | History and Physical ---
History & Physical Date & Time of Service: December 19, 2016 at 17:06 Chief Complaint: Nausea,Acid Primary Care Physician: Augustine Servin Jr,D.O. History of Present Illness Source: patient 46 y/o M c/o ongoing n/v. Pt states that he has had "severe" GERD since the . He underwent EGD at that time and was put on prilosec. He did not have insurance then, so he mostly tried to control his sx with diet restrictions. "I know what foods bother me and avoid them most of the time." He was put on prilosec consistently this past fall and felt that his GERD was more well controlled. About 2 weeks ago he was dx with kidney stones and given flomax and some sort of non-narcotic pain medication. He states that since that time, he has had epigastric abd pain, n/v, and a burning sensation in his chest that he associates with his GERD. Last week he was started on zantac after coming to the ED, but this did not help. He was given carafate from the ED yesterday and has taken 3 doses without help. His sx are intense, but not worse over the last 1.5 weeks. He was able to eat last night after leaving the ED s/p medications, but by midnight the burning had returned and he has not been able to eat most of the day today. He states he can feel the most intense burning move up into his chest mid-way, worse after eating. He has no pain or nausea s/p GI cocktail and dilaudid in the ED. He states he had epigastric pain on initial exam, but when they did the GB US there was no pain. When asked about diet, pt admits to drinking large amounts of Mountain Dew. " If I drink too much water, this also causes pain." Pt denies fever, SOB, chest pain, c/d, LE pain or swelling. ROS as noted above, otherwise neg. Past Medical/Surgical History Medical Problems: (1) History of testicular cancer Status: Chronic GERD Family History Family history was reviewed; no changes noted. Social History Smoking Status: Never Smoker Alcohol Use: occasionally (once every 1-2 months) Drug Use: none Marital Status: Multi-Drug Resistant Organisms History of MDRO: No Allergies Coded Allergies: No Known Allergies (Unverified , 12/19/16) Home Medications Scheduled Omeprazole (Prilosec), 20 MG PO DAILY Ondasetron Odt (Zofran Odt), 4 MG SL Q6H Ranitidine Hcl (Zantac), 300 MG PO DAILY Sucralfate (Carafate), 1 GM PO ACHS Physical Exam Vital Signs Date Time Temp Pulse Resp B/P Pulse Ox O2 Delivery O2 Flow Rate FiO2 12/19/16 16:10 62 16 131/91 96 Room Air 12/19/16 15:28 55 12/19/16 14:35 36.8 56 20 183/106 99 Room Air General Appearance: WD/WN, no apparent distress Head: normocephalic, atraumatic Respiratory/Chest: normal breath sounds, no respiratory distress Cardiovascular: regular rate, rhythm, no edema Abdomen/GI: non tender, soft Extremities/Musculoskelatal: no calf tenderness, no pedal edema Neurologic/Psych: alert, normal mood/affect, oriented x 3 Skin: normal color, warm/dry Diagnostics Laboratory Results Results Past 24 Hours Test 12/19/16 15:30 12/19/16 15:33 Range/Units White Blood Count 8.35 4.8-10.8 K/uL Red Blood Count 5.13 4.7-6.1 M/uL Hemoglobin 16.4 14.0-18.0 g/dL Hematocrit 46.5 42-52 % Mean Corpuscular Volume 90.6 80-100 fL Mean Corpuscular Hemoglobin 32.0 25-34 pg Mean Corpuscular Hemoglobin Concent 35.3 32-36 g/dl Platelet Count 279 130-400 K/uL Mean Platelet Volume 10.5 7.4-10.4 fL Neutrophils (%) (Auto) 79.0 % Lymphocytes (%) (Auto) 10.3 % Monocytes (%) (Auto) 9.9 % Eosinophils (%) (Auto) 0.5 % Basophils (%) (Auto) 0.1 % Neutrophils # (Auto) 6.59 1.4-6.5 K/uL Lymphocytes # (Auto) 0.86 1.2-3.4 K/uL Monocytes # (Auto) 0.83 0.11-0.59 K/uL Eosinophils # (Auto) 0.04 0-0.5 K/uL Basophils # (Auto) 0.01 0-0.2 K/uL RDW Standard Deviation 41.7 36.4-46.3 fL RDW Coefficient of Variation 12.4 11.5-14.5 % Immature Granulocyte % (Auto) 0.2 % Immature Granulocyte # (Auto) 0.02 0.00-0.02 K/uL Sodium Level 140 136-145 mmol/L Potassium Level 3.9 3.5-5.1 mmol/L Chloride Level 103 98-107 mmol/L Carbon Dioxide Level 31 21-32 mmol/L Anion Gap 6.0 3-11 mmol/L Blood Urea Nitrogen 7 7-18 mg/dl Creatinine 0.96 0.60-1.40 mg/dl Est Creatinine Clear Calc Drug Dose 128.7 ml/min Estimated GFR () 110.2 Estimated GFR (Non- 95.1 BUN/Creatinine Ratio 6.8 10-20 Random Glucose 97 70-99 mg/dl Calcium Level 8.9 8.5-10.1 mg/dl Total Bilirubin 0.7 0.2-1 mg/dl Direct Bilirubin 0.1 0-0.2 mg/dl Aspartate Amino Transf (AST/SGOT) 19 15-37 U/L Alanine Aminotransferase (ALT/SGPT) 40 12-78 U/L Alkaline Phosphatase 28 45-117 U/L Total Protein 7.3 6.4-8.2 gm/dl Albumin 4.1 3.4-5.0 gm/dl Lipase 123 73-393 U/L Bedside Troponin I 0.000 0-0.045 ng/ml Diagnostic Radiology CXR neg GB US neg for GB path, pancreas not well visualized due to gas pattern CT AP 12/18/16: neg for acute Impression Assessment and Plan 46 y/o M who was admitted for observation on 12/19 for recurrent n/v with several ED visits N/V: likely gastritis related to pain medication, hx of GERD, and heavy Mountain Dew ingestion. Cannot r/o Madrigal's esophagus or other esophageal issues given long standing GERD hx CXR, GB US, CT AP all neg for acute Lipase WNL CBC, PRP WNL Trop neg x1 Continue prilosec, zantac, carafate GI c/s pending for possible EGD GERD: as above Advised to d/c Mountain Dew use given his severe sx at baseline Nonsmoker, no major alcohol use Will likely need to examine diet further as well Other: Liquid diet with IVF Ambulation for DVT proph given likely short duration of admission Level of Care Med/Surg
--- NOTE | 2016-12-19 17:11 | DIAGNOSTIC IMAGING REPORT ---
ABDOMINAL ULTRASOUND, RIGHT UPPER QUADRANT HISTORY: Right upper quadrant abdominal pain.. COMPARISON: Abdomen and pelvis CT 12/16/2016. FINDINGS: Pancreas: Obscured by overlying bowel gas. Liver: Unremarkable. Gallbladder: No gallbladder wall thickening. No gallstones. CBD: 5 mm. Right kidney: No hydronephrosis. IMPRESSION: 1. Normal gallbladder. No gallstones. 2. The pancreas was obscured by overlying bowel gas. Electronically signed by: Jan Henning M.D. 12/19/2016 5:09 PM Dictated Date/Time: 12/19/2016 5:08 PM
[2016-12-19] MEDS ORDERED: MAGNESIUM HYDROXIDE SUSP 30 ML UDC PO PRN (17:30)
[2016-12-19] MEDS ORDERED: ONDANSETRON 4MG OD TAB SL PRN (17:30)
[2016-12-19] MEDS ORDERED: ONDANSETRON INJ 2 MG/ML 2 ML VIAL IV PRN (17:30)
[2016-12-19 17:35] VITALS: O2SAT 96; Ht 185.4 cm; Wt 114.2 kg
[2016-12-19] MEDS ORDERED: ALUMINUM/MAGNESIUM SUSP 72 ML, LIDOCAINE HCL 2% VISCOUS SOLN 24 ML, BARCODE IDENTIFIER ... PO PRN ×2 (17:45)
[2016-12-19] MEDS ORDERED: GI COCKTAIL PO PRN (17:45)
[2016-12-19] MEDS ORDERED: MoRPHine SULFATE 2 MG/ML CARP IV PRN (17:45)
[2016-12-19] MEDS ORDERED: IV FLUIDS COMPLETED PRN (17:45)
[2016-12-19 18:15] VITALS: BP 144/89; PULSE 51; TEMP 37; O2SAT 96
[2016-12-19] MEDS: D5NSS + 20MEQ KCL 1,000 ML IV SCH (18:56)
[2016-12-19 19:08] LABS: URINE APPEARANCE CLOUDY (CLEAR); URINE COLOR DK YELLOW; URINE EPITHELIAL CELL AUTO >30 /lpf (0-5); URINE NITRITE NEG (NEG); URINE PH 5.5 (4.5-7.5); URINE SPECIFIC GRAVITY 1.025 (1.000-1.030); UROBILINOGEN NEG (NEG)
[2016-12-19 19:13] LABS: MANUAL MICROSCOPIC REQUIRED? NO; REVIEW REQ? NO
[2016-12-19 19:15] LABS: URINE BILIRUBIN NEG (NEG)
[2016-12-19] MEDS: SUCRALFATE 1 GM TAB PO SCH (20:56)
[2016-12-19 23:02] VITALS: BP 166/94; PULSE 52; TEMP 36.9; O2SAT 97
[2016-12-20] VITALS (12 sets, daily range): BP systolic 145–196; BP diastolic 86–107; PULSE 52–60; TEMP 36.9–37.2; O2SAT 96–98
[2016-12-20] MEDS: D5NSS + 20MEQ KCL 1,000 ML IV SCH ×2 (05:31→16:20)
[2016-12-20] MEDS: SUCRALFATE 1 GM TAB PO SCH ×4 (07:29→21:26)
[2016-12-20] MEDS ORDERED: PANTOprazole SOD 40 MG TAB PO SCH (09:00)
[2016-12-20] MEDS: RANITIDINE HCL 150 MG TAB PO SCH (09:07)
--- NOTE | 2016-12-20 10:56 | Progress Note ---
Subjective Date of Service: December 20, 2016. Subjective Pt evaluation today including: conversation w/ patient, physical exam, lab review, review of inpatient medication list Pain: still with moderate to severe pain PO Intake: NPO after midnight Voiding: no voiding problems patient still with epigastric pain, sharp, pretty constant had some emesis this AM, yellow, no blood, no bile no dysphagia at all BM were normal prior to admission discussed that today is a holiday so only emergent scopes would be done, can eat today Problem List Medical Problems: (1) Acute bronchitis Status: Acute (2) Cough Status: Acute (3) Dehydration Status: Acute (4) Dehydration Status: Acute (5) Dehydration Status: Acute (6) Epigastric abdominal pain Status: Acute (7) Epigastric abdominal pain Status: Acute (8) Gastritis Status: Acute (9) Right ureteral calculus Status: Acute (10) Vomiting Status: Acute Review of Systems Abdomen: + nausea, + pain (epigastric), + vomiting All Other Systems: Reviewed and Negative Medications Current Inpatient Medications Medications (Trade) Dose Ordered Sig/Jarrett Route Start Time Stop Time Status Last Admin Dose Admin Acetaminophen (Tylenol Tab) 650 mg Q4H PRN PO 12/19/16 17:30 01/18/17 17:29 Magnesium Hydroxide (Milk Of Magnesia Susp) 30 ml Q6H PRN PO 12/19/16 17:30 01/18/17 17:29 Ondansetron HCl 4 mg 4 mg Q6H PRN IV 12/19/16 17:30 01/18/17 17:29 Potassium Chloride/Dextrose/ Sod Cl (D5nss + 20meq KCl) 1,000 ml @ 100 mls/hr Q10H IV 12/19/16 20:00 01/18/17 19:59 12/20/16 05:31 100 MLS/HR Ondansetron HCl (Zofran Odt) 4 mg Q6H PRN SL 12/19/16 17:30 01/18/17 17:29 Sucralfate (Carafate Tab) 1 gm ACHS PO 12/19/16 21:00 01/18/17 20:59 12/20/16 07:29 1 GM Ranitidine HCl (zANTac TAB) 300 mg DAILY PO 12/20/16 09:00 01/19/17 08:59 12/20/16 09:07 300 MG Morphine Sulfate (MoRPHine SULFATE INJ) 1 mg Q6H PRN IV 12/19/16 17:45 01/02/17 17:44 12/20/16 07:26 1 MG Miscellaneous 1 ea PRN PRN N/A 12/19/16 17:45 12/19/17 17:44 Al Hydroxide/Mg Hydroxide/ Lidocaine HCl/ Barcode (Maalox Susp/ Viscous Lidocaine 2% Soln) 24mL po q 6 hours prn Q6H PRN PO 12/19/16 17:45 01/18/17 17:44 Hydromorphone HCl (Dilaudid Inj) 0.5 mg Q4 PRN IV 12/20/16 10:45 01/03/17 10:44 UNV Hydralazine HCl (HydrALAZINE INJ) 10 mg Q6 PRN IV. 12/20/16 10:45 01/19/17 10:44 UNV Pantoprazole Sodium (Protonix Tab) 40 mg BID PO 12/20/16 21:00 01/19/17 20:59 UNV Objective Vital Signs Date Time Temp Pulse Resp B/P Pulse Ox O2 Delivery O2 Flow Rate FiO2 12/20/16 07:40 Room Air 12/20/16 07:12 37.1 57 20 196/95 98 Room Air 12/20/16 00:00 Room Air 12/20/16 00:00 36.9 52 16 155/89 97 Room Air 12/19/16 23:02 36.9 52 16 166/94 97 Room Air 12/19/16 18:15 37.0 51 16 144/89 96 Room Air 12/19/16 18:15 Room Air 12/19/16 17:57 52 18 148/93 96 Room Air 12/19/16 17:35 96 Room Air 12/19/16 16:10 62 16 131/91 96 Room Air 12/19/16 15:28 55 12/19/16 14:35 36.8 56 20 183/106 99 Room Air Physical Exam General Appearance: WD/WN, no apparent distress Eyes: normal inspection, EOMI, sclerae normal Neck: supple, no adenopathy, no JVD, trachea midline Respiratory/Chest: chest non-tender, lungs clear, normal breath sounds, no respiratory distress, no accessory muscle use Cardiovascular: regular rate, rhythm, no edema, no gallop, no JVD, no murmur Abdomen: normal bowel sounds, soft, no organomegaly, + tenderness (epigastric) Extremities: normal range of motion, non-tender, normal inspection, no pedal edema, no calf tenderness, pelvis stable 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, no motor/sensory deficits, alert, normal mood/affect, oriented x 3 Skin: normal color, warm/dry, no rash Lymphatic: no adenopathy Laboratory Results Last 24 Hours Test 12/19/16 15:30 12/19/16 15:33 White Blood Count 8.35 K/uL Red Blood Count 5.13 M/uL Hemoglobin 16.4 g/dL Hematocrit 46.5 % Mean Corpuscular Volume 90.6 fL Mean Corpuscular Hemoglobin 32.0 pg Mean Corpuscular Hemoglobin Concent 35.3 g/dl Platelet Count 279 K/uL Mean Platelet Volume 10.5 fL Neutrophils (%) (Auto) 79.0 % Lymphocytes (%) (Auto) 10.3 % Monocytes (%) (Auto) 9.9 % Eosinophils (%) (Auto) 0.5 % Basophils (%) (Auto) 0.1 % Neutrophils # (Auto) 6.59 K/uL Lymphocytes # (Auto) 0.86 K/uL Monocytes # (Auto) 0.83 K/uL Eosinophils # (Auto) 0.04 K/uL Basophils # (Auto) 0.01 K/uL RDW Standard Deviation 41.7 fL RDW Coefficient of Variation 12.4 % Immature Granulocyte % (Auto) 0.2 % Immature Granulocyte # (Auto) 0.02 K/uL Sodium Level 140 mmol/L Potassium Level 3.9 mmol/L Chloride Level 103 mmol/L Carbon Dioxide Level 31 mmol/L Anion Gap 6.0 mmol/L Blood Urea Nitrogen 7 mg/dl Creatinine 0.96 mg/dl Est Creatinine Clear Calc Drug Dose 128.7 ml/min Estimated GFR () 110.2 Estimated GFR (Non- 95.1 BUN/Creatinine Ratio 6.8 Random Glucose 97 mg/dl Calcium Level 8.9 mg/dl Total Bilirubin 0.7 mg/dl Direct Bilirubin 0.1 mg/dl Aspartate Amino Transf (AST/SGOT) 19 U/L Alanine Aminotransferase (ALT/SGPT) 40 U/L Alkaline Phosphatase 28 U/L Total Protein 7.3 gm/dl Albumin 4.1 gm/dl Lipase 123 U/L Bedside Troponin I 0.000 ng/ml Assessment and Plan 46 yo male with severe epigastric pain and vomiting, h/o GERD but symptoms never this bad, failed outpatient measures with carafate and Zantac added to PPI - Severe GERD, epigastric pain: could have esophagitis, gastritis, PUD? increase Protonix to 40mg BID, continue Ranitidine, Carafate, Maalox consult GI, doubt any scope would be done today with holiday NPO after midnight tonight except meds regular diet - Elevated BP: no h/o HTN, likely due to pain and anxiety Hydralazine PRN, control pain, Dilaudid IV PRN for breakthrough - h/o testicular cancer plan: pain control, allow to eat, GI evaluation for possible EGD tomorrow
[2016-12-20] MEDS: HYDROmorphone INJ 1 MG/ML SYR IV PRN ×3 (11:10→21:41)
[2016-12-20] MEDS: HydrALAZINE HCL 20 MG/ML VIAL IV. PRN ×2 (11:10→17:54)
--- NOTE | 2016-12-20 18:45 | GASTROINTESTINAL CONSULTATION ---
DATE OF CONSULTATION: 12/20/2016 REFERRED BY: Dr. Yeny Whittaker. HISTORY OF PRESENT ILLNESS: I was asked by Dr. Whittaker to consult on this gentleman for evaluation of nausea, vomiting and reflux. The patient is a 46-year-old who presented to the hospital after several emergency room visits because of episodes of regurgitation, nausea and vomiting. On further questioning, there is not a lot of nausea and vomiting. He describes just a lot of regurgitation and "coughing up of bile." He states he has been struggling with this for several weeks despite him being on omeprazole. He states he has had these symptoms on and off since the . He is very vague about his prior workups though he describes having workups in [place] and locally, but he does not remember any doctor's names. He denies any dysphagia, denies any weight loss. I did review the [facility] chart and there was no records of any workup though in the early they may not be included in the electronic chart. He states that since he has been admitted and given IVs, he has been doing better. He says his heartburn symptoms are typically well controlled with his omeprazole. He denies any altered bowel habits. PAST MEDICAL HISTORY: I reviewed his medical records and past medical history and his past medical history is significant for what is already mentioned as well as testicular cancer. OUTPATIENT MEDICATIONS: Include omeprazole and Carafate and Zantac. SOCIAL HISTORY: Not significant for smoking and he denies any excessive alcohol use. FAMILY HISTORY: Negative for gastrointestinal disease. ALLERGIES: He denies any drug allergies. REVIEW OF SYSTEMS: As above, otherwise he denies any recent change in vision or hearing. He has had no pruritus or icterus. He denies any productive cough, palpitations, fevers, seizure activity. Denies any depression. He denies any joint swelling. He has had no dysuria. He denies any rectal bleeding. He has had no heat or cold intolerance. He denies any change in gait or easy bruising. PHYSICAL EXAMINATION: GENERAL: Reveals a gentleman in no distress. VITAL SIGNS: Most recent temperature was 37.1, blood pressure is 171/93, pulse is 60. SKIN: Anicteric. HEENT: Eyes show anicteric sclerae. NECK: Supple. CHEST: Clear. HEART: Regular rate and rhythm. ABDOMEN: Soft with good bowel sounds. There is no organomegaly, masses, or rebound tenderness noted. EXTREMITIES: Warm with good distal pulses. NEUROLOGIC: He is grossly intact, alert and oriented x3. LABORATORY DATA: Right upper quadrant ultrasound did not reveal any significant pathology, specifically there were no gallstones. Liver enzymes were normal. CBC was normal. IMPRESSION: A 46-year-old gentleman with decades worth of reflux and regurgitation and now with exacerbation of symptoms. He is unclear whether this is related to true nausea, vomiting or reflux disease. It is surprising that with him being on Carafate, omeprazole and Zantac he continues to have symptoms. This would be very unusual for true reflux. It is unclear he has some functional component to this. I think it is reasonable to set him up for an upper endoscopy tomorrow and I will arrange for this. He is agreeable with this plan. MISA
[2016-12-20] MEDS: ACETAMINOPHEN 325 MG TAB PO PRN (19:08)
[2016-12-20] MEDS: PANTOprazole SOD 40 MG TAB PO SCH (21:27)
[2016-12-21] VITALS (7 sets, daily range): BP systolic 122–191; BP diastolic 71–107; PULSE 55–94; TEMP 36.7–37.3; O2SAT 95–99
[2016-12-21] MEDS: D5NSS + 20MEQ KCL 1,000 ML IV SCH (01:33)
[2016-12-21] MEDS: HYDROmorphone INJ 1 MG/ML SYR IV PRN (01:33)
[2016-12-21] MEDS: SUCRALFATE 1 GM TAB PO SCH ×2 (08:00→12:00)
[2016-12-21] MEDS: PANTOprazole SOD 40 MG TAB PO SCH (08:36)
[2016-12-21] MEDS: RANITIDINE HCL 150 MG TAB PO SCH (08:36)
--- NOTE | 2016-12-21 09:55 | GI REPORT ---
Procedure Date: 12/21/2016 9:47 AM Procedure: Upper GI endoscopy Indications: Epigastric abdominal pain, Nausea with vomiting - recent kidney stone; on PPI and H2RA; drinks 6pk of Mt. Sajanw a day, chews tobacco Medicines: Monitored Anesthesia Care Complications: No immediate complications. Estimated blood loss: None. Estimated Blood Loss: Estimated blood loss: none. Procedure: Pre-Anesthesia Assessment: - Prior to the procedure, a History and Physical was performed, and patient medications, allergies and sensitivities were reviewed. The patient's tolerance of previous anesthesia was reviewed. - The risks and benefits of the procedure and the sedation options and risks were discussed with the patient. All questions were answered and informed consent was obtained. - Patient identification and proposed procedure were verified prior to the procedure by the physician and the nurse. The procedure was verified in the pre-procedure area in the procedure room. - Mental Status Examination: alert and oriented. Airway Examination: normal oropharyngeal airway and neck mobility. Respiratory Examination: clear to auscultation. CV Examination: normal. Abdominal Examination: bowel sounds present, abdomen soft and non-tender, no masses or organomegaly noted. - ASA Grade Assessment: II - A patient with mild systemic disease. After obtaining informed consent, the endoscope was passed under direct vision. Throughout the procedure, the patient's blood pressure, pulse, and oxygen saturations were monitored continuously. The scope was introduced through the mouth, and advanced to the second part of duodenum. The upper GI endoscopy was accomplished without difficulty. The patient tolerated the procedure well. Findings: The esophagus was normal. The stomach was normal. The examined duodenum was normal. Impression: - Normal esophagus. - Normal stomach. - Normal examined duodenum. - No specimens collected. Recommendation: - Follow an antireflux regimen. - Continue present medications. - Return to primary care physician as previously scheduled. - [facility] same day. Marcy Flores D.O. Marcy Flores, 12/21/2016 9:54:33 AM This report has been signed electronically. Note Initiated On: 12/21/2016 9:47 AM I attest to the content of the Intraoperative Record and orders documented therein, exceptions below
--- NOTE | 2016-12-21 09:57 | Progress Note ---
Progress Note Date of Service December 21, 2016. Progress Note EGD this AM was normal. No esophagitis. No ulcers. I suspect his on-going symptoms are related to his caffeine and tobacco use with superimposed effect of recent kidney stone and pain medications. Would advance diet. Continue with oral PPI. Can increase to BID dosing. OK to continue the ranitidine as well. No need for carafate. He needs to stop drinking [employer] then work on quitting chewing tobacco. otherwise, his heartburn and reflux symptoms are sure to continue. Please call with questions.
--- NOTE | 2016-12-21 10:34 | Anesthesiology Progress Note ---
Anesthesia Post Op Note Date & Time December 21, 2016 at 10:34 Vital Signs Pain Intensity: 0.0 Vital Signs Past 12 Hours Date Time Temp Pulse Resp B/P Pulse Ox O2 Delivery O2 Flow Rate FiO2 12/21/16 10:30 58 20 184/98 100 Room Air 12/21/16 10:15 53 20 174/98 100 12/21/16 10:13 58 16 191/93 100 Room Air 12/21/16 09:56 58 16 134/67 100 Room Air 12/21/16 09:30 37 65 20 167/101 97 Room Air 12/21/16 07:25 Room Air 12/21/16 07:21 36.8 55 16 165/83 97 Room Air 12/20/16 23:30 Room Air 12/20/16 22:55 36.9 55 16 149/86 96 Room Air Notes Mental Status: alert / awake / arousable, participated in evaluation Pt Amnestic to Procedure: Yes Nausea / Vomiting: adequately controlled Pain: adequately controlled Airway Patency, RR, SpO2: stable & adequate BP & HR: stable & adequate Hydration State: stable & adequate Anesthetic Complications: no major complications apparent
[2016-12-21] MEDS: ACETAMINOPHEN 325 MG TAB PO PRN (10:47)
[2016-12-21] MEDS: HydrALAZINE HCL 20 MG/ML VIAL IV. PRN (11:05)
[2016-12-21] MEDS ORDERED: KETOROLAC TROMETHAMINE 30 MG/ML VIAL IV STA (11:29)
[2016-12-21] MEDS ORDERED: KETOROLAC TROMETHAMINE 30 MG/ML VIAL IV PRN (11:30)
[2016-12-21] MEDS ORDERED: PROMETHAZINE HCL INJ 25 MG in SODIUM CHLORIDE 0.9% 50ML 50 ML IV PRN (11:30)
[2016-12-21] MEDS ORDERED: PROMETHAZINE HCL INJ 25 MG in SODIUM CHLORIDE 0.9% 50ML 50 ML IV STA (11:41)
[2016-12-21] MEDS ORDERED: RIZATRIPTAN BENZOATE 10 MG TAB PO ONE (11:45)
[2016-12-21] MEDS ORDERED: METHYLPREDNISOLONE IV 60 MG in SYRINGE 0 ML IV ONE (11:45)
[2016-12-21] MEDS ORDERED: HydrALAZINE HCL 20 MG/ML VIAL IV. PRN (12:00)
[2016-12-21] MEDS ORDERED: NURSING VERBAL MED ORDER ONE (12:15)
[2016-12-21] MEDS ORDERED: LIDOCAINE HCL 2% 2 ML VIAL (20MG/ML) ONE (13:52)
[2016-12-21] MEDS ORDERED: PROPOFOL IV EMULSION 10 MG/ML 20 ML VIAL IV ONE (13:52)
--- NOTE | 2016-12-21 13:55 | Progress Note ---
Subjective Date of Service: December 21, 2016. Subjective Pt evaluation today including: conversation w/ patient, physical exam, lab review, review of inpatient medication list Pain: headache and epigastric pain PO Intake: poor, nauseated Voiding: no voiding problems EGD today, normal results still with rifting and now with severe headache discussed plan with patient, will check HIDA tomorrow since the EGD was normal he is requesting Dilaudid will try Toradol, Solumedrol, Phenergan first Problem List Medical Problems: (1) Acute bronchitis Status: Acute (2) Cough Status: Acute (3) Dehydration Status: Acute (4) Dehydration Status: Acute (5) Dehydration Status: Acute (6) Epigastric abdominal pain Status: Acute (7) Epigastric abdominal pain Status: Acute (8) Gastritis Status: Acute (9) Right ureteral calculus Status: Acute (10) Vomiting Status: Acute Review of Systems Constitutional: + fatigue, + problem reported (severe headache), + weakness Abdomen: + nausea, + pain, + vomiting, No constipation, No diarrhea All Other Systems: Reviewed and Negative Medications Current Inpatient Medications Medications (Trade) Dose Ordered Sig/Jarrett Route Start Time Stop Time Status Last Admin Dose Admin Acetaminophen (Tylenol Tab) 650 mg Q4H PRN PO 12/19/16 17:30 01/18/17 17:29 12/21/16 10:47 650 MG Magnesium Hydroxide (Milk Of Magnesia Susp) 30 ml Q6H PRN PO 12/19/16 17:30 01/18/17 17:29 Ondansetron HCl (Zofran Inj) 4 mg Q6H PRN IV 12/19/16 17:30 01/18/17 17:29 Ondansetron HCl (Zofran Odt) 4 mg Q6H PRN SL 12/19/16 17:30 01/18/17 17:29 Ranitidine HCl (zANTac TAB) 300 mg DAILY PO 12/20/16 09:00 01/19/17 08:59 12/20/16 09:07 300 MG Morphine Sulfate (MoRPHine SULFATE INJ) 1 mg Q6H PRN IV 12/19/16 17:45 01/02/17 17:44 12/20/16 07:26 1 MG Miscellaneous 1 ea PRN PRN N/A 12/19/16 17:45 12/19/17 17:44 Al Hydroxide/Mg Hydroxide/ Lidocaine HCl/ Barcode (Maalox Susp/ Viscous Lidocaine 2% Soln) 24mL po q 6 hours prn Q6H PRN PO 12/19/16 17:45 01/18/17 17:44 Hydromorphone HCl (Dilaudid Inj) 0.5 mg Q4 PRN IV 12/20/16 10:45 01/03/17 10:44 12/21/16 01:33 0.5 MG Pantoprazole Sodium (Protonix Tab) 40 mg BID PO 12/20/16 21:00 01/19/17 20:59 12/20/16 21:27 40 MG Hydralazine HCl 20 mg 20 mg Q6 PRN IV. 12/21/16 12:00 01/20/17 11:59 Methylprednisolone Sodium Succinate 60 mg/Syringe 0.96 ml @ 1.5 mls/min Q12 IV 12/21/16 21:00 01/20/17 20:59 Promethazine HCl/ Sodium Chloride (Phenergan Inj/ Nss 50ml) 51 ml @ 204 mls/hr Q6H PRN IV 12/21/16 11:30 01/20/17 11:29 Ketorolac Tromethamine (Toradol Inj) 30 mg Q6H PRN IV 12/21/16 11:30 12/26/16 11:29 Objective Vital Signs Date Time Temp Pulse Resp B/P Pulse Ox O2 Delivery O2 Flow Rate FiO2 12/21/16 13:31 63 183/82 12/21/16 10:55 36.7 57 17 191/107 99 Room Air 12/21/16 10:30 58 20 184/98 100 Room Air 12/21/16 10:15 53 20 174/98 100 12/21/16 10:13 58 16 191/93 100 Room Air 12/21/16 09:56 58 16 134/67 100 Room Air 12/21/16 09:30 37 65 20 167/101 97 Room Air 12/21/16 07:25 Room Air 12/21/16 07:21 36.8 55 16 165/83 97 Room Air 12/20/16 23:30 Room Air 12/20/16 22:55 36.9 55 16 149/86 96 Room Air 12/20/16 21:44 145/93 12/20/16 19:04 174/102 12/20/16 16:20 Room Air 12/20/16 15:58 37.2 54 18 180/93 97 Room Air 12/20/16 14:02 60 Physical Exam General Appearance: WD/WN, no apparent distress Eyes: normal inspection, EOMI, sclerae normal ENT: normal ENT inspection, hearing grossly normal, pharynx normal Neck: supple, no adenopathy, no JVD, trachea midline Respiratory/Chest: chest non-tender, lungs clear, normal breath sounds, no respiratory distress, no accessory muscle use Cardiovascular: regular rate, rhythm, no edema, no gallop, no JVD, no murmur Abdomen: normal bowel sounds, non tender, soft, no organomegaly Extremities: normal range of motion, non-tender, normal inspection, no pedal edema, no calf tenderness 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 will check HIDA tomorrow - Elevated BP: no h/o HTN, likely due to pain and anxiety Hydralazine PRN, control pain, Dilaudid IV PRN for breakthrough - Migraine headache: Solumedrol, Phenergan, Toradol use Dilaudid only for breakthrough - h/o testicular cancer plan: HIDA tomorrow, change to full admit
[2016-12-21] MEDS ORDERED: AMLODIPINE BESYLATE 5 MG TAB PO ONE (15:15)
[2016-12-21] MEDS: METHYLPREDNISOLONE IV 60 MG in SYRINGE 0 ML IV SCH (20:46)
[2016-12-22] MEDS: RANITIDINE HCL 150 MG TAB PO SCH (07:08)
[2016-12-22 07:36] VITALS: BP 140/90; PULSE 82; TEMP 36.9; O2SAT 95
[2016-12-22 08:07] VITALS: O2SAT 95
[2016-12-22] MEDS: METHYLPREDNISOLONE IV 60 MG in SYRINGE 0 ML IV SCH (08:09)
[2016-12-22] MEDS ORDERED: PANTOprazole SOD 40 MG TAB PO SCH (09:00)
[2016-12-22] MEDS ORDERED: AMLODIPINE BESYLATE 5 MG TAB PO SCH (09:00)
[2016-12-22] MEDS ORDERED: SINCALIDE INJ 2.3 MCG in SODIUM CHLORIDE 0.9% 100ML 100 ML IV SCH (13:00)
--- NOTE | 2016-12-22 14:37 | DIAGNOSTIC IMAGING REPORT ---
NUCLEAR MEDICINE HEPATOBILIARY SCAN WITH GALLBLADDER EJECTION FRACTION CLINICAL HISTORY: Nausea and vomiting. COMPARISON: Right upper quadrant ultrasound December 19, 2016. TECHNIQUE: 5.55 mCi of technetium 99m Choletec IV was injected at 12:30 PM on December 22, 2016. Immediately following injection, imaging of the abdomen was carried out for 60 minutes in the anterior projection. At this time, 2.3 mcg of Sincalide was injected IV as per protocol. Imaging was performed for an additional 45 minutes to estimate a gallbladder ejection fraction. FINDINGS: Hepatic uptake of radiotracer is prompt and homogeneous. Activity is first identified within the gallbladder at 10 minutes. Common bile duct activity is first noted at 15 minutes. Small bowel activity is first noted at 30 minutes. Following injection of sincalide, there was normal gallbladder emptying with an ejection fraction estimated at 88%. Normal is greater than 30-35%. IMPRESSION: 1. Normal hepatobiliary scan. No evidence of acute or chronic cholecystitis. 2. Normal gallbladder ejection fraction of 88%. Electronically signed by: Bubba Mcclellan M.D. 12/22/2016 2:36 PM Dictated Date/Time: 12/22/2016 2:34 PM
[2016-12-22] MEDS ORDERED: NRV5 PO ×2 (14:47)
--- NOTE | 2016-12-22 14:53 | Discharge Instructions ---
Discharge Instructions Date of Service December 22, 2016. Admission Reason for Admission: Vomiting Discharge Discharge Diagnosis / Problem: Vomiting, elevated blood pressure Discharge Goals Goal(s): Improve disease control, Specific goals (follow up blood pressure readings in office) Activity Recommendations Activity Limitations: resume your previous activity Lifting Limitations: none Exercise/Sports Limitations: as tolerated May Resume Sexual Activity: when tolerated Shower/Bathe: no limitations Driving or Machine Use: no limitations . Instructions / Follow-Up Instructions / Follow-Up Medications: - NORVASC: 5mg once a day, started in the hospital, tolerated well Full work up for epigastric pain and nausea, EGD was normal as was HIDA scan, no signs of gall bladder disease or dysfunction Vomiting and pain could be a migraine variant? abdominal migraine FOLLOW UP - Dr. Servin in one week for blood pressure check in the office Current Hospital Diet Patient's current hospital diet: Regular Diet Discharge Diet Recommended Diet: Low Sodium Diet (2gm Na) Procedures Procedures Performed: EGD Pending Studies Studies pending at discharge: no Medical Emergencies . Who to Call and When: Medical Emergencies: If at any time you feel your situation is an emergency, please call 911 immediately. . Non-Emergent Contact Non-Emergency issues call your: Primary Care Provider Call Non-Emergent contact if: your pain is concerning you, you have any medication questions . . "Provider Documentation" section prepared by Jl Faye. . VTE Core Measure Inpt VTE Proph given/why not?: Unfractionated heparin SQ [place] Drug Monitoring Program Search Results: no issues identified
[2016-12-22 15:49] VITALS: BP 140/90; PULSE 82; TEMP 36.9; O2SAT 95
--- NOTE | 2016-12-23 08:26 | Discharge Summary ---
Discharge Summary Date of Service Dec 23, 2016. Discharge Summary Admission Date: December 21, 2016 at 13:47 Discharge Date: December 22, 2016 Discharge Disposition: Home Principal Diagnosis: Epigastric pain and vomiting Problems/Secondary Diagnoses: Migraine headache Procedures: EGD - normal HIDA scan - normal Abdominal US - normal Consultations: Gastroenterology Medication Reconciliation New Medications: Amlodipine Besylate (Amlodipine Besylate) 5 Mg Tab 5 MG PO QAM, #30 TAB 3 Refills Continued Medications: Omeprazole (Prilosec) 20 Mg Capcr 20 MG PO DAILY, CAP Ondasetron Odt (Zofran Odt) 4 Mg Tab 4 MG SL Q6H for Nausea, #15 TAB Ranitidine Hcl (Zantac) 300 Mg Tab 300 MG PO DAILY, #30 Discontinued Medications: Sucralfate (Carafate) 1 Gm Tab 1 GM PO ACHS for 30 Days, #120 TAB Discharge Exam Patient was feeling significantly better, no headache, no epigastric pain, less nausea. HIDA scan completed, normal results. Patient was given diet and tolerated and discharged home with PCP follow up. Discussed with him that BP was better controlled on Norvasc, recommended that he continue on discharge, he agreed. Review of Systems: Constitutional: + problem reported (headache resolved yesterday), No fever, No chills, No sweats, No weight loss, No weakness, No fatigue Eyes: No worsening of vision, No eye pain, No redness, No discharge, No diplopia, No problem reported ENT: No hearing loss, No unusual epistaxis, No nasal symptoms, No sore throat, No tinnitus, No dental problems, No trouble swallowing, No problem reported Respiratory: No cough, No sputum, No wheezing, No shortness of breath, No dyspnea on exertion, No dyspnea at rest, No hemoptysis, No problem reported Cardiovascular: No chest pain, No orthopnea, No PND, No edema, No claudication, No palpitations, No problem reported Abdomen: + nausea (minimal), No pain, No vomiting, No diarrhea, No constipation, No GI bleeding, No problem reported Musculoskeletal: No joint pain, No muscle pain, No swelling, No calf pain, No problem reported Genitourinary - Male: No hematuria, No dysuria, No urinary frequency, No urinary urgency Neurologic: No memory loss, No paralysis, No weakness, No numbness/tingling , No vertigo, No balance problems, No problem reported Psychiatric: No depression symptoms, No anhedonism, No anxiety, No insomnia , No substance abuse, No problem reported Endocrine: No fatigue, No excessive thirst, No excessive urination, No problem reported Hematologic / Lymphatic: No abnormal bleeding/bruising, No clotting problems , No swollen lymph nodes, No night sweats, No problem reported Integumentary: No rash, No itch, No new/changing skin lesions, No color change, No bleeding, No problem reported Physical Exam: General Appearance: WD/WN, no apparent distress Eyes: normal inspection, EOMI, sclerae normal ENT: normal ENT inspection, hearing grossly normal, pharynx normal Neck: supple, no adenopathy, no JVD, trachea midline Respiratory/Chest: chest non-tender, lungs clear, normal breath sounds, no respiratory distress, no accessory muscle use Cardiovascular: regular rate, rhythm, no edema, no gallop, no JVD, no murmur , normal peripheral pulses Abdomen / GI: normal bowel sounds, non tender, soft, no organomegaly Extremities: normal inspection, no calf tenderness, normal capillary refill , no pedal edema, normal range of motion 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, no motor/sensory deficits , alert, normal mood/affect, normal reflexes, oriented x 3 Skin: normal color, warm/dry, no rash Hospital Course 46 yo male with severe epigastric pain and vomiting, h/o GERD but symptoms never this bad, failed outpatient measures with carafate and Zantac added to PPI - epigastric pain, intractable N/V: normal EGD on 12/21 (normal esophagus, stomach, duodenum) Protonix 40mg daily, continue Ranitidine, Carafate, Maalox as needed at home tolerating diet LFT and lipase normal on admission GB ultrasound normal HIDA - normal EF, normal filling perhaps the pain is more related to migraine? atypical symptoms, atypical migraine perhaps symptoms related to uncontrolled blood pressure, started on Norvasc - Elevated BP: no h/o HTN, initially thought due to pain and anxiety, however, systolic consistently hit 190's and diastolic in 110's which would not be caused by stress/pain Hydralazine PRN initially given Norvasc 5mg, better BP control, will prescribe outpatient and needs close follow up with Dr. Servin - Migraine headache: Solumedrol, Phenergan, Toradol resolved on 12/21 - h/o testicular cancer plan: d/c home with close PCP follow up Total Time Spent: Greater than 30 minutes This includes examination of the patient, discharge planning, medication reconciliation, and communication with other providers. Discharge Instructions Please refer to the electronic Patient Visit Report (Discharge Instructions) for additional information. Follow-Up Dr. Servin in one week, BP check Additional Copies To Augustine Servin Jr,D.O.
== END 2016-12-22 16:00 | disposition home or self-care (01) | DRG 392 ==
LOC: ENRESERVTM → ENRESERVDT → C.EDB 14:33 → C.MSN 17:33 → EDBEDREQSVC 17:39 → OBSVTOIN 12-21 13:47
PROVIDERS: ADMIT Family Medicine; ATTEND Internal Medicine
PROC: 0DJ08ZZ Inspection of Upper Intestinal Tract, Via Natural or Artificial Opening Endoscopic (ICD-10-PCS; principal; 2016-12-21 09:28)
DX: R10.13 Epigastric pain (principal); K21.9 Gastro-esophageal reflux disease without esophagitis; Z79.899 Other long term (current) drug therapy; Z85.47 Personal history of malignant neoplasm of testis